=== PATIENT | male | born 1960 | race Caucasian/White ===

== ENCOUNTER → 2022-04-04 11:45 | Outpatient (CLI) | payer BC, SELFPAY ==
[2022-04-04 18:20] LABS: Basophils % 0.7 % (0.1-2.0); Eosinophils # 0.1 K/mm3 (0.0-0.4); Eosinophils % 2.1 % (0.1-12.0); Hematocrit 49.8 % (42.0-52.0); Hemoglobin 16.3 g/dL (14.1-18.0); Lymphocytes # 1.4 K/mm3 (0.7-4.5); Mean Corpuscular HGB Conc 32.6 g/dL (31.8-35.4); Mean Corpuscular Hemoglobin 31.9 pg (27.0-31.2); Mean Corpuscular Volume 97.9 fl (80-94); Mean Platelet Volume 10.4 fl (7.4-10.4); Monocytes # 0.4 K/mm3 (0.1-1.0); Monocytes % 7.9 % (1.7-9.3); Neutrophils # 3.6 K/mm3 (1.8-7.8); Neutrophils % 64.4 % (37.0-80.0); Platelet Count 168 K/mm3 (142-424); Red Blood Count 5.09 M/mm3 (4.60-6.20); Red Cell Distribution Width 12.6 % (11.5-17.5); White Blood Count 5.6 K/mm3 (4.8-10.8)
[2022-04-04 18:50] LABS: Alanine Aminotransferase 32 U/L (12-78); Albumin Level 4.5 g/dl (3.5-5.0); Albumin/Globulin Ratio 1.7 (1.1-1.8); Alkaline Phosphatase 69 U/L (38-126); Anion Gap 13.4 mEq/L (5-15); Aspartate Amino Transferase 36 U/L (17-59); Bilirubin,Total 0.7 mg/dl (0.2-1.3); Blood Urea Nitrogen 19 mg/dl (9-20); Calcium 9.8 mg/dl (8.4-10.2); Carbon Dioxide 30 mmol/L (22.0-30.0); Chloride 101 mmol/L (98-107); Chol/HDL Ratio 3.8 (1-3.5); Cholesterol 190 mg/dl (140-200); Estimated Glomerular Filt Rate 76 ml/min (>60); GFR (African American) 92 ML/MIN (>60); Globulin 2.7 g/dL (1.3-3.2); Glucose 95 mg/dl (74-100); HDL Cholesterol 50 mg/dl (40-60); Potassium 4.4 mmoL/L (3.5-5.1); Sodium 140 mmol/L (136-145); Total Protein,Serum 7.2 g/dl (6.3-8.2); Triglycerides 118 mg/dl (30-150); VLDL Cholesterol 24 mg/dL (0-40)
[2022-04-04 19:02] LABS: Direct LDL Cholesterol 108.77 mg/dL (100-129)
[2022-04-04 19:06] LABS: 25-OH Vitamin D, Total 40.1 ng/mL (30-100)
[2022-04-04 19:22] LABS: Thyroid Stimulating Hormone 1.42 uIU/mL (0.465-4.68)
[2022-04-04 19:41] LABS: Vitamin B12 602 pg/mL (239-931)
[2022-04-04 19:44] LABS: Hemoglobin A1C 5.6 % (4.0-6.0); Microalbumin < 6.000 mg/L (0-16.7)
== END ==
PROVIDERS: PCP Nurse Practitioner; Visit Provider Nurse Practitioner
DX: I10 Essential (primary) hypertension (principal); E78.5 Hyperlipidemia, unspecified; K21.9 Gastro-esophageal reflux disease without esophagitis; J30.9 Allergic rhinitis, unspecified; E66.9 Obesity, unspecified; Z68.31 Body mass index [BMI] 31.0-31.9, adult; N40.0 Benign prostatic hyperplasia without lower urinary tract symptoms; Z12.5 Encounter for screening for malignant neoplasm of prostate
CPT/HCPCS: 80053; 80061; 82043; 82306; 82607; 83036; 84443; 85025; G0103

== ENCOUNTER → 2023-05-15 23:27 | Outpatient (CLI) | payer BC, SELFPAY ==
[2023-05-15 18:51] LABS: Basophils % 0.5 % (0.1-2.0); Eosinophils # 0.1 K/mm3 (0.0-0.4); Eosinophils % 1.8 % (0.1-12.0); Hematocrit 50.8 % (42.0-52.0); Hemoglobin 17.5 g/dL (14.1-18.0); Lymphocytes # 1.4 K/mm3 (0.7-4.5); Lymphocytes % 27.1 % (10-50); Mean Corpuscular HGB Conc 34.5 g/dL (31.8-35.4); Mean Corpuscular Hemoglobin 32.9 pg (27.0-31.2); Mean Corpuscular Volume 95.4 fl (80-94); Mean Platelet Volume 10.5 fl (7.4-10.4); Monocytes # 0.3 K/mm3 (0.1-1.0); Neutrophils # 3.3 K/mm3 (1.8-7.8); Neutrophils % 64.5 % (37.0-80.0); Platelet Count 138 K/mm3 (142-424); Red Blood Count 5.32 M/mm3 (4.60-6.20); Red Cell Distribution Width 12.6 % (11.5-17.5); White Blood Count 5.1 K/mm3 (4.8-10.8)
[2023-05-15 19:05] LABS: Alanine Aminotransferase 39 U/L (12-78); Albumin Level 4.6 g/dl (3.5-5.0); Albumin/Globulin Ratio 1.5 (1.1-1.8); Alkaline Phosphatase 51 U/L (38-126); Aspartate Amino Transferase 36 U/L (17-59); Bilirubin,Total 0.9 mg/dl (0.2-1.3); Blood Urea Nitrogen 19 mg/dl (9-20); Calcium 9.1 mg/dl (8.4-10.2); Carbon Dioxide 30 mmol/L (22.0-30.0); Chloride 103 mmol/L (98-107); Cholesterol 185 mg/dl (140-200); Estimated Glomerular Filt Rate 76 ml/min (>60); GFR (African American) 92 ML/MIN (>60); Glucose 98 mg/dl (74-100); Total Protein,Serum 7.6 g/dl (6.3-8.2); Triglycerides 146 mg/dl (30-150); VLDL Cholesterol 29 mg/dL (0-40)
[2023-05-15 19:07] LABS: Anion Gap 6.4 mEq/L (5-15); Chol/HDL Ratio 3.6 (1-3.5); HDL Cholesterol 52 mg/dl (40-60); Potassium 4.4 mmoL/L (3.5-5.1); Sodium 135 mmol/L (136-145)
[2023-05-15 19:16] LABS: Direct LDL Cholesterol 104.79 mg/dL (100-129)
[2023-05-15 19:36] LABS: Prostate Specific Ag Screen 0.9 ng/ml (0.0-4.0); Thyroid Stimulating Hormone 1.77 uIU/mL (0.465-4.68)
[2023-05-15 19:55] LABS: Vitamin B12 481 pg/mL (239-931)
[2023-05-15 19:58] LABS: Microalbumin < 6.000 mg/L (0-16.7)
[2023-05-15 20:20] LABS: Creatinine,Urine Random 62 mg/dL (Not Estab.)
[2023-05-15 20:40] LABS: Hemoglobin A1C 5.6 % (4.0-6.0)
== END ==
LOC: LAB.DROPOF 23:27
PROVIDERS: PCP Nurse Practitioner; Visit Provider Nurse Practitioner
DX: E78.5 Hyperlipidemia, unspecified (principal); I10 Essential (primary) hypertension; J30.9 Allergic rhinitis, unspecified; K21.9 Gastro-esophageal reflux disease without esophagitis; N40.0 Benign prostatic hyperplasia without lower urinary tract symptoms; Z12.5 Encounter for screening for malignant neoplasm of prostate; Z79.899 Other long term (current) drug therapy
CPT/HCPCS: 80053; 80061; 82043; 82570; 82607; 83036; 84443; 85025; G0103

== ENCOUNTER 2024-04-02 10:49 | Outpatient (CLI) | payer BC, SELFPAY ==
[2024-04-02 18:12] LABS: Albumin Level 4.5 g/dl (3.5-5.0)
[2024-04-02 18:13] LABS: Chloride 105 mmol/L (98-107); Sodium 137 mmol/L (136-145)
[2024-04-02 18:15] LABS: Alanine Aminotransferase 32 U/L (12-78); Albumin/Globulin Ratio 1.5 (1.1-1.8); Alkaline Phosphatase 50 U/L (38-126); Aspartate Amino Transferase 30 U/L (17-59); Blood Urea Nitrogen 18 mg/dl (9-20); Carbon Dioxide 25 mmol/L (22.0-30.0); Estimated Glomerular Filt Rate 86 ml/min (>60); GFR (African American) 103 ML/MIN (>60); Total Protein,Serum 7.5 g/dl (6.3-8.2)
[2024-04-02 18:16] LABS: Calcium 9.3 mg/dl (8.4-10.2); Chol/HDL Ratio 4.1 (1-3.5); Cholesterol 183 mg/dl (140-200); Glucose 111 mg/dl (74-100); HDL Cholesterol 45 mg/dl (40-60); Triglycerides 130 mg/dl (30-150); VLDL Cholesterol 26 mg/dL (0-40)
[2024-04-02 18:27] LABS: Direct LDL Cholesterol 101.84 mg/dL (100-129)
[2024-04-02 18:30] LABS: Hemoglobin A1C 5.5 % (4.0-6.0)
[2024-04-02 18:41] LABS: Basophils % 0.8 % (0.1-2.0); Eosinophils # 0.1 K/mm3 (0.0-0.4); Eosinophils % 2.8 % (0.1-12.0); Hemoglobin 16.5 g/dL (14.1-18.0); Lymphocytes # 1.2 K/mm3 (0.7-4.5); Mean Corpuscular HGB Conc 34.3 g/dL (31.8-35.4); Mean Corpuscular Hemoglobin 32.1 pg (27.0-31.2); Mean Corpuscular Volume 93.5 fl (80-94); Mean Platelet Volume 10.2 fl (7.4-10.4); Monocytes # 0.3 K/mm3 (0.1-1.0); Monocytes % 6.4 % (1.7-9.3); Neutrophils # 2.9 K/mm3 (1.8-7.8); Platelet Count 152 K/mm3 (142-424); Red Blood Count 5.14 M/mm3 (4.60-6.20); Red Cell Distribution Width 12.5 % (11.5-17.5); White Blood Count 4.6 K/mm3 (4.8-10.8)
[2024-04-02 18:43] LABS: T4 (Thyroxine) 7.7 ug/dl (5.53-11.0)
[2024-04-02 18:56] LABS: Thyroid Stimulating Hormone 1.37 uIU/mL (0.465-4.68)
[2024-04-02 19:42] LABS: 25-OH Vitamin D, Total 47.5 ng/mL (30-100)
== END 2024-04-02 23:59 | disposition home or self-care (01) ==
LOC: LAB.DROPOF 04-05 10:49
PROVIDERS: PCP Nurse Practitioner Family; Visit Provider Nurse Practitioner Family
DX: E78.5 Hyperlipidemia, unspecified (principal); N40.0 Benign prostatic hyperplasia without lower urinary tract symptoms; I10 Essential (primary) hypertension
CPT/HCPCS: 80050; 80053; 80061; 82306; 83036; 84436; 84443; 85025

== ENCOUNTER 2024-12-21 10:33 | Outpatient (CLI) | payer BC, SELFPAY ==
--- OUTSIDE RECORDS SUMMARY | 2024-10-26 11:26 | XMS_ITS | Encounter Summary ---
Author [place] [address] Care Team Providers Care Hyperbaric Nurse Name Role Phone Pramod Dawson MD Primary Care Provider [phone] Reason for Visit * Reason Comments Chest Pain Pt states int chest tightness for past couple of weeks cpta none Encounter Details Date Type Department Care Team (Late st Contact Info) Description 10/26/2024 11:26 AM EDT - 10/26/2024 3:09 PM EDT [facility] [place] [address] Don Molina MD [address] [place] [address] Chest pain, unspecified type (Primary Dx) Discharge Disposition: Home or Self Care Social History Tobacco Use Types Packs/Day Years Used Date Smoking Tobacco: Former Smokeless Tobacco: Never Alcohol Use Standard Drinks/Week Comments No 0 (1 standard drink = 0.6 oz pur e alcohol) Sex and Gender Information Value Date Recorded Sex Assigned at Not on file Legal Sex Male 5:16 PM EDT Gender Identity Not on file Sexual Orientation Not on file documented as of this encounter Last Filed Vital Signs Vital Sign Reading Time Taken Comments Blood Pressure 135/104 10/26/2024 2:00 PM EDT Pulse 58 10/26/2024 2:30 PM EDT Temperature 36.7 C (98 F) 10/26/2024 11:06 AM EDT Respiratory Rate 18 10/26/2024 2:30 PM EDT Oxygen Saturation 96% 10/26/2024 2:30 PM EDT Inhaled Oxygen Concentration - - Weight 100.2 kg (221 lb) 10/26/2024 11:06 AM EDT Height 182.9 cm (6') 10/26/2024 11:06 AM EDT Body Mass Index 29.97 10/26/2024 11:06 AM EDT documented in this encounter Functional Status * Suicide Severity Rating Answer Date of Assessment Author No Risk 10/26/2024 11:35 AM EDT Dang Queen, ASHWIN * [place] Suicide Severity Rating Scale (Q shift for moderate and high) Question Answer Date of Assessment Author 1. In the past month, have y ou wished you were or wished you could go to sleep and not wake up? 0 10/26/2024 11:35 AM EDT Rose Queen, RN 2. In the past month, have y ou actually had any thoughts of killing yourself? (If no, skip to question 6) 0 10/26/2024 11:35 AM ED T Dang Queen, RN 6. Have you ever done anythi ng, started to do anything, or prepared to do anything to end your life? 0 10/26/2024 11:35 AM EDT Dang Bergman RN documented as of this encounter Discharge Instructions * Discharge Instructions* Vance Lopez APRN - 10/26/2024 2:25 PM EDT Follow-up as discussed with referrals provided. Return to ER with new or worsening concerns as discussed. * Attachments The following attachments cannot be sent through Care Everywhere. * Chest Pain, Adult ED (Malawian) documented in this encounter Medications at Time of Discharge finasteride (PROPECIA) 1 mg Oral Tablet Take 1 mg by mouth daily. LISINOPRIL-HYDROCH LOROTHIAZIDE ORAL Take by mouth. omeprazole (PRILOSEC) 40 mg Oral Capsule, Delayed Release(E.C.) Take 1 Cap by mouth daily. 30 Cap 11 11/13/2016 rosuvastatin (CRESTOR) 10 mg Oral Tablet Take 10 mg by mouth daily. documented as of this encounter Discharge Disposition Disposition Code Departure Means Destination Comment s Home or Self Detention documented in this encounter ED Notes * Vance Lopez, ROLLED O[employer] MILL OPERATOR - 10/26/2024 10:57 AM EDT CHIEF COMPLAINT Chief Complaint Patient presents with Chest Pain Pt states int chest tightness for past couple of weeks cpta none I saw this patient for my attending physician Don Raya MD who was available for direct consultation during assessment, workup and disposition planning. ED COURSE & MEDICAL DECISION MAKING Anastasiya Diaz is a 64 y.o. male with a PMHx listed below, notable for Feliz's esophagus presenting with chest pain. # Chest pain (Subacute) - Briefly, 64-year-old otherwise healthy male presenting with midsternal chest pain that worsened postprandially yesterday but has been ongoing for several weeks thought to be stress related but not necessarily exertional nor pleuritic. On exam he is uncomfortable in no acute distress. He is hemodynamically stable. ACS certainly considered although EKG and troponin negative x 2 reassuring. BNP isotherwise within normal limits. Remainder of labs unremarkable. Biliary pathology considered although abdominal exam is benign, no leukocytosis and no hepatobiliary derangement. Chest x-ray is without consolidative change suggestive of pneumonia or other acute intrathoracic finding. Given paucity of respiratory symptoms and lack of overtly concerning historical physical exam findings doubt VTE ormore specifically PE as such further diagnostic workup deferred today. Does have a history of Feliz's esophagitis and reports symptoms that do seem somewhat consistent with this. He has had modest symptom improvement with GI cocktail. He is felt to be low risk based on heart score of 3 stable foroutpatient follow-up with cardiology, recommend follow-up with GI as well. Strict return precautions discussed for escalating symptoms. After shared decision making patient feels comfortable with disposition plan for discharge and outpatient follow-up as aforementioned. HEART Score Row Name 10/26/24 1350 History Moderately suspicious ECG Normal Age 45-64 Risk Factors 1-2 risk factors Troponin Less than or equal to normal limit HEART Score 3 - History obtained by patient as well as chart review. - Pertinent Labs & Imaging studies reviewed. (See chart for ordered tests and details). - Independent Imaging Interpretation: None - Consultants: None - Social Determinants of Health: Noncontributory - Care of patient discussed with nursing team and nursing documentation reviewed. ED COURSE Medications Administered Medications sodium chloride 0.9% syringe 5-10 mL (has no administration in time range) sodium chloride 0.9% IV line flush 50 mL (has no administration in time range) aluminum & magnesium hydroxide-simethicone 200-200-20 mg/5 mL suspension 30 mL (30 mL Oral Given 10/26/24 1221) lidocaine (XYLOCAINE) 2 % viscous solution 10 mL (10 mL Mouth/Throat Given 10/26/24 1221) Prescriptions Written ED Current Prescriptions None Future Appointments Future Appointments Date Time Provider Department Center 12/20/2024 9:20 AM Dewey Streeter MD [facility] FINAL IMPRESSION 1. Chest pain, unspecified type HPI Anastasiya Diaz is a 64 y.o. male presenting with chest pain. Patient reports a at least 2-week long history of midsternal chest pain that he describes as dull and achy, occasionally burning. It doesnot radiate into his back or shoulder but he does report occasional radiation into both sides of his neck. He denies any rating abdominal pain. Reports occasional nausea noted yesterday denies vomitin g. Reports occasional shortness of breath. Denies any exertional component or pleuritic nature to his pain and states he was able to bale hay yesterday without significant difficulty or pain noted.He states his pain is mostly noted at rest or under stress. He denies any lightheadedness or dizziness but does note feeling generally fatigued and weak. Denies fevers or chills. He reports a more chronic cough that is nonproductive. Denies any known recent sick contacts. Denies leg swelling or weight gain. Does note yesterday after eating hotdogs and hamburgers at a cookout his pain did worsen somewhat and occasionally feels burning in nature. REVIEW OF SYSTEMS A complete review of systems is negative except as noted in the HPI. PAST MEDICAL HISTORY Past Medical History: Diagnosis Date Heartburn Hypertension Prostate disorder Ulcer Urinary tract infection FAMILY HISTORY Family History Problem Relation Age of Onset Cancer Mother Colon Cancer Mother Esophageal Cancer Other SOCIAL HISTORY Social History Socioeconomic History Marital status: Spouse name: None Number of children: None Years of education: None Highest education level: None Tobacco Use Smoking status: Former Smokeless tobacco: Never Vaping Use Vaping status: Never Used Substance and Sexual Activity Alcohol use: No Drug use: No Social Drivers of Health Received from [facility] Intimate Partner Violence SURGICAL HISTORY Past Surgical History: Procedure Laterality Date COLONOSCOPY N/A 07/19/2013 COLONOSCOPY; Surgeon: Jordan Beck MD; Location: ED ENDOSCOPY; Service: Endoscopy COLONOSCOPY N/A 11/13/2016 Surgeon: Jordan Beck MD; Location: [facility] ENDOSCOPY; Service: Endoscopy CYSTOSCOPY In office with UPPER GASTROINTESTINAL ENDOSCOPY N/A 11/13/2016 ESOPHAGOGASTRODUODENOSCOPY with biopsy COLONOSCOPY with hot snare polypectomy; Surgeon: Jordan Beck MD; Location: [facility] ENDOSCOPY; Service: Endoscopy CURRENT MEDICATIONS No current facility-administered medications on file prior to encounter. Current Outpatient Medications on File Prior to Encounter Medication Sig Dispense Refill finasteride (PROPECIA) 1 mg Oral Tablet Take 1 mg by mouth daily. LISINOPRIL-HYDROCHLOROTHIAZIDE ORAL Take by mouth. omeprazole (PRILOSEC) 40 mg Oral Capsule, Delayed Release(E.C.) Take 1 Cap by mouth daily. 30 Cap 11 rosuvastatin (CRESTOR) 10 mg Oral Tablet Take 10 mg by mouth daily. tamsulosin (FLOMAX) 0.4 mg Oral Capsule Take 2 Capsules by mouth daily. 180 Capsule 3 ALLERGIES Allergies Allergen Reactions Penicillins Hives PHYSICAL EXAM VITAL SIGNS: ED Triage Vitals Temp 10/26/24 1106 98 ??F (36.7 ??C) Pulse 10/26/24 1058 68 Resp 10/26/24 1058 18 BP 10/26/24 1106 (!) 164/98 SpO2 10/26/24 1058 98 % Height 10/26/24 1106 6' (1.829 m) Weight 10/26/24 1106 221 lb (100.2 kg) Constitutional: Appears comfortable. Nontoxic. No acute distress. HENT: Atraumatic. Normocephalic. Eyes: Conjunctiva normal. EOMI Neck: ROM normal, supple. Cardiovascular: Regular rate and regular rhythm. Extremities appear warm and well perfused. Thorax & Lungs: Respiratory effort normal. Lungs CTAB Abdomen: Nondistended. Nontender. Musculoskeletal: No deformity or swelling. Moves all 4 extremities spontaneously with apparent equal strength. Skin: Warm and dry. Neurologic: Awake and alert. No focal deficit. LABS/RADIOLOGY Reviewed (See Orders) Results for orders placed or performed during the hospital encounter of 10/26/24 XR CHEST AP PORTABLE Narrative XR CHEST AP PORTABLE, 10/26/2024 12:31 PM CLINICAL HISTORY: -Midsternal chest pain/cough COMPARISON: 12/10/2020 PROCEDURE COMMENTS: AP portable technique. FINDINGS: Support devices: No visible support devices. Heart and mediastinal contours within normal limits for technique. No active failure, pneumonia, or visible effusion. No visible pneumothorax. Impression No acute finding. - Note: Radiology results need to be interpreted within a comprehensive clinical context. If you have questions about the radiology report, please contact the office of the ordering clinician. CBC WITH DIFF Result Value Ref Range WBC 4.8 3.7 - 10.3 x10(3)/mcL RBC 5.08 4.60 - 6.10 x10(6)/mcL Hgb 16.0 13.7 - 17.5 g/dL Hct 46.5 40.0 - 51.0 % MCV 91.5 80.0 - 100.0 fL MCH 31.5 26.0 - 34.0 pg MCHC 34.4 30.7 - 35.5 g/dL RDW 11.8 <=14.9 % Platelet 151 (L) 155 - 369 x10(3)/mcL MPV 11.0 8.8 - 12.5 fL Neut Percent 59.0 % Imm Gran% 0.0 % Lymph Percent 28.8 % Page Percent 10.5 % Eos Percent 1.3 % Baso Percent 0.4 % Neut # 2.8 1.6 - 6.1 x10(3)/mcL IMMGRAN# 0.0 0.0 - 0.1 x10(3)/mcL Lymph # 1.4 1.2 - 3.9 x10(3)/mcL Page # 0.5 0.3 - 0.9 x10(3)/mcL Eos# 0.1 0.0 - 0.5 x10(3)/mcL Baso # 0.0 0.0 - 0.1 x10(3)/mcL COMPREHENSIVE METABOLIC PANEL Result Value Ref Range Sodium 137 136 - 145 mmol/L Potassium 4.1 3.5 - 5.0 mmol/L Chloride 102 98 - 107 mmol/L Total CO2 25 22 - 29 mmol/L Anion Gap 10 7 - 16 mmol/L Calcium 9.4 8.8 - 10.4 mg/dL Glucose Lvl 104 (H) 70 - 99 mg/dL BUN 18 8 - 23 mg/dL Creatinine 1.05 0.67 - 1.30 mg/dL Albumin 4.6 3.2 - 4.6 gm/dL Total Protein 7.5 6.4 - 8.3 gm/dL Bili Total 0.7 0.2 - 1.4 mg/dL ALT 19 <=41 U/L AST 19 <=40 U/L Alk Phos 56 40 - 129 U/L eGFR (CKD-EPIcr 2020) 80 >=60 mL/min/1.73 m2 LIPASE LEVEL Result Value Ref Range Lipase Lvl 21 13 - 60 U/L TROPONIN-T HIGH SENSITIVITY BASELINE W/ REFLEX Result Value Ref Range ws-zObrszmsx-R 7 <22 ng/L Narrative Ingestion of jenni doses of biotin (>5 mg/day) taken within 8 hours of drawing blood sample can interfere with this immunoassay test. NT PROBNP Result Value Ref Range NT Pro-BNP 49 <=229 pg/mL Narrative An NT pro-BNP level less than 300 pg/mL in any patient, regardless of age, effectively rules out acute CHF with a 99% negative predictive value. Ingestion of jenni doses of biotin (>5 mg/day) taken within 8 hours of drawing blood sample can interfere with this immunoassay test. TROPONIN-T HIGH SENSITIVITY 2HR Result Value Ref Range ua-qCozxmunn-R 2HR 6 <22 ng/L hs-cTnT 2Hr Delta from Baseline -1 <4 ng/L Narrative Ingestion of jenni doses of biotin (>5 mg/day) taken within 8 hours of drawing blood sample can interfere with this immunoassay test. EK EKG [address] [facility] Test Date: 2024-10-26 Pat Name: [facility] Department: DEPID Room: Gender: Male Early Childhood Worker: Marvin : 1960 Requested By: [facility] Order Number: [id number] Reading MD: Cindi Dickson DO Measurements Intervals Stanton Rate: 64 P: 22 ID: 160 QRS: -3 QRSD: 91 T: 2 QT: 379 QTc: 391 Interpretive Statements SINUS RHYTHM MODERATE VOLTAGE CRITERIA FOR LVH, CONSIDER NORMAL VARIANT Electronically Signed On 10-26-2024 14:38:38 EDT by Cindi Dickson DO XR CHEST AP PORTABLE Final Result No acute finding. - Note: Radiology results need to be interpreted within a comprehensive clinical context. If you have questions about the radiology report, please contact the office of the ordering clinician. EK EKG 12 LEAD ED Interpretation I have interpreted the EKG for this encounter. Rhythm sinus rhythm at a rate of 64 bpm. The axis isnormal. T waves flattened in aVF and mildly inverted in 3. No ST elevation. No STEMI. Final Result [facility] Test Date: 2024-10-26 Pat Name: [facility]AS[facility] Department: DEPID Room: Gender: Male Early Childhood Worker: Marvin : 1960 Requested By: [facility] Order Number: [id number] Reading MD: Cindi Dickson DO Measurements Intervals Stanton Rate: 64 P: 22 ID: 160 QRS: -3 QRSD: 91 T: 2 QT: 379 QTc: 391 Interpretive Statements SINUS RHYTHM MODERATE VOLTAGE CRITERIA FOR LVH, CONSIDER NORMAL VARIANT Electronically Signed On 10-26-2024 14:38:38 EDT by Cindi Dickson DO Abnormal Labs Reviewed CBC WITH DIFF - Abnormal; Notable for the following components: Result Value Platelet 151 (*) All other components within normal limits COMPREHENSIVE METABOLIC PANEL - Abnormal; Notable for the following components: Glucose Lvl 104 (*) All other components within normal limits EKG EKG sinus rhythm. Ventricular rate 64. Normal axis. No acute ST segment changes. PROCEDURES/ULTRASOUND DISPOSITION Risks, benefits, and alternatives were discussed. At this time the patient has been deemed safe fordischarge. My customary discharge instructions including strict return precautions for worsening ornew symptoms have been communicated. CRITICAL CARE Condition at Discharge/Transfer from Department/Shift Turnover: Improved In cases where narcotics are prescribed, ANA report was obtained, reviewed, and made part of record. After examining available information, and risks of prescribing or dispensing controlled substances was explained to the patient (including non-treatment or other treatment), it is considered medically appropriate to administer narcotics as prescribed. This note was dictated using voice-recognition software, which occasionally construes inadvertent typographic errors. Vance Lopez APRN 10/26/24 1509 Cosigned by Don Molina MD at 10/27/2024 9:08 AM EDT Associated attestation - Don Molina MD - 10/27/2024 9:08 AM EDT Attending Resaw Tailer Note: I have participated in the care of this patient and have reviewed the pertinent clinical information including physical exam findings, labs, and radiographic studies that were gathered by the STEPHANIE. I have reviewed and/or discussed the plan of care I have reviewed workup findings in real-time during the patient's visit. EK EKG 12 LEAD ED Interpretation by Don Molina MD (10/26 743) I have interpreted the EKG for this encounter. Rhythm sinus rhythm at a rate of 64 bpm. The axis isnormal. T waves flattened in aVF and mildly inverted in 3. No ST elevation. No STEMI. Don Molina MD This chart was completed using voice recognition technology and may contain unintended errors documented in this encounter Plan of Treatment Upcoming Encounters Date Type Department Care Team (Late st Contact Info) Description 05/05/2025 1:45 PM EST Office Visit [facility] [address] [address] Cindi Dickson DO [address] [place] [phone] documented as of this encounter Procedures Procedure Name Priority Date/Time Associated Diagnosis Comments SCANNED EKG 10/27/2024 12:21 PM EDT TROPONIN-T HIGH SENSITIVITY 2HR Timed 10/26/2024 2:15 PM EDT XR CHEST AP PORTABLE STAT 10/26/2024 12:31 PM EDT TROPONIN-T HIGH SENSITIVITY BASELINE W/ REFLEX STAT 10/26/2024 12:21 PM EDT CBC WITH DIFF STAT 10/26/2024 12:21 PM EDT NT PROBNP STAT 10/26/2024 12:21 PM EDT LIPASE LEVEL STAT 10/26/2024 12:21 PM EDT COMPREHENSIVE METABOLIC PANEL STAT 10/26/2024 12:21 PM EDT SALINE LOCK IV STAT 10/26/2024 11:51 AM EDT EK EKG 12 LEAD STAT 10/26/2024 10:59 AM EDT documented in this encounter Results * SCANNED EKG (10/27/2024 12:21 PM EDT) Anatomical Region Laterality Modality Other 10/27/2024 12:2 1 PM EDT us Unknown Provider IMG ECG ORDERABLES Final Result * TROPONIN-T HIGH SENSITIVITY 2HR (10/26/2024 2:15 PM EDT) fs-gZasbrvac-E 2HR 6 <22 ng/L 10/26/2024 2:34 PM EDT [facility] hs-cTnT 2Hr Delta from Baseline -1 <4 ng/L 10/26/2024 2:34 PM EDT [facility] Blood VENOUS BLOOD / Unknown Venipuncture / Unknown 10/26/2024 2:15 PM EDT 10/26/2024 2:16 PM EDT Narrative [facility] - 10/26/2024 2:34 PM EDT Ingestion of jenni doses of biotin (>5 mg/day) taken within 8 hours of drawing blood sample can interfere with this immunoassay test. Vance Lopez APRN CHEMISTRY ORDERABLES Fin al Result [facility] [address] [place] [address] * XR CHEST AP PORTABLE (10/26/2024 12:31 PM EDT) Anatomical Region Laterality Modality Chest Radiographic Caitlin ging 10/26/2024 12:3 1 PM EDT Impressions 10/26/2024 12:39 PM EDT No acute finding. - Note: Radiology results need to be interpreted within a comprehensive clinical context. If you have questions about the radiology report, please contact the office of the ordering clinician. Narrative 10/26/2024 12:39 PM EDT XR CHEST AP PORTABLE, 10/26/2024 12:31 PM CLINICAL HISTORY: -Midsternal chest pain/cough COMPARISON: 12/10/2020 PROCEDURE COMMENTS: AP portable technique. FINDINGS: Support devices: No visible support devices. Heart and mediastinal contours within normal limits for technique. No active failure, pneumonia, or visible effusion. No visible pneumothorax. Procedure Note Mukesh Melgar III, MD - 10/26/2024 XR CHEST AP PORTABLE, 10/26/2024 12:31 PM CLINICAL HISTORY: -Midsternal chest pain/cough COMPARISON: 12/10/2020 PROCEDURE COMMENTS: AP portable technique. FINDINGS: Support devices: No visible support devices. Heart and mediastinal contours within normal limits for technique. Noactive failure, pneumonia, or visible effusion. No visible pneumothorax. IMPRESSION: No acute finding. - Note: Radiology results need to be interpreted within a comprehensiveclinical context. If you have questions about the radiology report, please contactthe office of the ordering clinician. Vance Lopez APRN IMG DIAGNOSTIC IMAGING O RDERABLES Final Result * NT PROBNP (10/26/2024 12:21 PM EDT) NT Pro-BNP 49 <=229 pg/mL 10/26/2024 12:51 PM EDT [facility] Blood VENOUS BLOOD / Unknown Venipuncture / Unknown 10/26/2024 12:21 PM EDT 10/26/2024 12:28 PM EDT Narrative [facility] - 10/26/2024 12:51 PM EDT An NT pro-BNP level less than 300 pg/mL in any patient, regardless of age, effectively rules out acute CHF with a 99% negative predictive value. Ingestion of jenni doses of biotin (>5 mg/day) taken within 8 hours of drawing blood sample can interfere with this immunoassay test. Vance Lopez APRN CHEMISTRY ORDERABLES Fin al Result Performing Organization Address [facility] Co de Phone Number [address] [phone] * TROPONIN-T HIGH SENSITIVITY BASELINE W/ REFLEX (10/26/2024 12:21 PM EDT) oy-nUaeyprea-I 7 <22 ng/L 10/26/2024 12:51 PM EDT [facility] Blood VENOUS BLOOD / Unknown Venipuncture / Unknown 10/26/2024 12:21 PM EDT 10/26/2024 12:28 PM EDT Narrative [facility] - 10/26/2024 12:51 PM EDT Ingestion of jenni doses of biotin (>5 mg/day) taken within 8 hours of drawing blood sample can interfere with this immunoassay test. Vance Lopez APRN CHEMISTRY ORDERABLES Fin al Result Performing Organization Address [facility]/ZIP Co de Phone Number [address] [phone] * LIPASE LEVEL (10/26/2024 12:21 PM EDT) Lipase Lvl 21 13 - 60 U/L 10/26/2024 12:48 PM EDT [facility] Blood VENOUS BLOOD / Unknown Venipuncture / Unknown 10/26/2024 12:21 PM EDT 10/26/2024 12:28 PM EDT us Vance Diya Malikaries ROLLED O[employer] MILL OPERATOR CHEMISTRY ORDERABLES Fin al Result [facility] [address] [place] [address] * (ABNORMAL) COMPREHENSIVE METABOLIC PANEL (10/26/2024 12:21 PM EDT) Sodium 137 136 - 145 mmol/L 10/26/2024 12:48 PM EDT [facility] Potassium 4.1 3.5 - 5.0 mmol/L 10/26/2024 12:48 PM EDT [facility] Chloride 102 98 - 107 mmol/L 10/26/2024 12:48 PM EDT [facility] Total CO2 25 22 - 29 mmol/L 10/26/2024 12:48 PM EDT [facility] Anion Gap 10 7 - 16 mmol/L 10/26/2024 12:48 PM EDT [facility] Calcium 9.4 8.8 - 10.4 mg/dL 10/26/2024 12:48 PM EDT [facility] Glucose Lvl 104(H) 70 - 99 mg/dL 10/26/2024 12:48 PM EDT [facility] BUN 18 8 - 23 mg/dL 10/26/2024 12:48 PM EDT [facility] Creatinine 1.05 0.67 - 1.30 mg/dL 10/26/2024 12:48 PM EDT [facility] Albumin 4.6 3.2 - 4.6 gm/dL 10/26/2024 12:48 PM EDT [facility] Total Protein 7.5 6.4 - 8.3 gm/dL 10/26/2024 12:48 PM EDT [facility] Bili Total 0.7 0.2 - 1.4 mg/dL 10/26/2024 12:48 PM EDT [facility] ALT 19 <=41 U/L 10/26/2024 12:48 PM EDT [facility] AST 19 <=40 U/L 10/26/2024 12:48 PM EDT [facility] Alk Phos 56 40 - 129 U/L 10/26/2024 12:48 PM EDT [facility] eGFR (CKD-EPIcr 2020) 80 >=60 mL/min/1.7 3 m2 10/26/2024 12:48 PM EDT [facility] Comment:Estimated GFR was ca lculated using the CKD-EPIcr (2020) equation refit without race. The equation is recommended by the [employer] - [place] [employer]ph[employer] Task Force. Blood VENOUS BLOOD / Unknown Venipuncture / Unknown 10/26/2024 12:21 PM EDT 10/26/2024 12:28 PM EDT us Vance Lopez RO[employer]ED [employer] M[employer] OPERATOR CHEMISTRY ORDERABLES Fin al Result [place] [id number] * (ABNORMAL) CBC WITH DIFF (10/26/2024 12:21 PM EDT) WBC 4.8 3.7 - 10.3 x10(3)/mcL 10/26/2024 12:33 PM EDT [facility] RBC 5.08 4.60 - 6.10 x10(6)/mcL 10/26/2024 12:33 PM EDT [facility] Hgb 16.0 13.7 - 17.5 g/dL 10/26/2024 12:33 PM EDT [facility] Hct 46.5 40.0 - 51.0 % 10/26/2024 12:33 PM EDT [facility] [facility] MCV 91.5 80.0 - 100.0 fL 10/26/2024 12:33 PM EDT [facility] MCH 31.5 26.0 - 34.0 pg 10/26/2024 12:33 PM EDT [facility] MCHC 34.4 30.7 - 35.5 g/dL 10/26/2024 12:33 PM EDT [facility] RDW 11.8 <=14.9 % 10/26/2024 12:33 PM EDT [facility] Platelet 151(L) 155 - 369 x10(3)/[facility] 10/26/2024 12:33 PM EDT [facility] MPV 11.0 8.8 - 12.5 fL 10/26/2024 12:33 PM EDT [facility] Neut Percent 59.0 % 10/26/2024 12:33 PM EDT [facility] Comment:Neutrophils equals s egs plus bands Imm Gran% 0.0 % 10/26/2024 12:33 PM EDT [facility] Comment:Automated count of m etamyelocytes, myelocytes and promyelocytes. Lymph Percent 28.8 % 10/26/2024 12:33 PM EDT [facility] Page Percent 10.5 % 10/26/2024 12:33 PM EDT [facility] Eos Percent 1.3 % 10/26/2024 12:33 PM EDT [facility] Baso Percent 0.4 % 10/26/2024 12:33 PM EDT [facility] Neut # 2.8 1.6 - 6.1 x10(3)/[facility] 10/26/2024 12:33 PM EDT [facility] Comment:Neutrophils equals s egs plus bands IMMGRAN# 0.0 0.0 - 0.1 x10(3)/mcL 10/26/2024 12:33 PM EDT [facility] Comment:Automated count of m etamyelocytes, myelocytes and promyelocytes. An absolute IG <0.1 is reported as 0.0. Lymph # 1.4 1.2 - 3.9 x10(3)/mcL 10/26/2024 12:33 PM EDT [facility] Page # 0.5 0.3 - 0.9 x10(3)/[facility] 10/26/2024 12:33 PM EDT [facility] Eos# 0.1 0.0 - 0.5 x10(3)/mcL 10/26/2024 12:33 PM EDT [facility] Baso # 0.0 0.0 - 0.1 x10(3)/mcL 10/26/2024 12:33 PM EDT [facility] Blood VENOUS BLOOD / Unknown Venipuncture / Unknown 10/26/2024 12:21 PM EDT 10/26/2024 12:28 PM EDT us Vance Lopez [employer] HEMATOLOGY ORDERABLES Fi nal Result [facility] [address] [place] [address] * EK EKG 12 LEAD (10/26/2024 10:59 AM EDT) Anatomical Region Laterality Modality Electrocardiogra phy 10/26/2024 11:0 4 AM EDT Impressions 10/26/2024 2:[address] 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1960 Requested By: [facility] Order Number: [id number] Reading MD: Cindi Dickson DO Measurements Intervals [place] Rate: 64 P: 22 ID: 160 QRS: -3 QRSD: 91 T: 2 QT: 379 QTc: 391 Interpretive Statements SINUS RHYTHM MODERATE VOLTAGE CRITERIA FOR LVH, CONSIDER NORMAL VARIANT Electronically Signed On 10-26-2024 14:38:38 EDT by Cindi Dickson DO Narrative Procedure Note Cindi Dickson DO - 10/26/[address] [facility] Test Date: 2024-10-26 Pat Name: ANASTASIYA DIAZ Department: DEPID Room: Gender: Male Early Childhood Worker: Bt : 1960 Requested By: [facility] Order Number: [id number] Reading MD: Cindi Dickson DO Measurements Intervals [place] Rate: 64 P: 22 ID: 160 QRS: -3 QRSD: 91 T: 2 QT: 379 QTc: 391 Interpretive Statements SINUS RHYTHM MODERATE VOLTAGE CRITERIA FOR LVH, CONSIDER NORMAL VARIANT Electronically Signed On 10-26-2024 14:38:38 EDT by Cindi Dickson DO us Don Molina MD IMG ECG ORDERABLES Final Resul t documented in this encounter Visit Diagnoses Diagnosis Chest pain, unspecified type- Primary documented in this encounter Administered Medications Inactive Administered Medications - up to 1 most recent administrations Medication Order MAR Action Action Date Dose Rate Site aluminum & magnesium hydroxide-simethicone 200-200-20 mg/5 mL suspension 30 mL 30 mL, Oral, ONCE, 1 dose, On Fri10/26/24 at 1200, Viscous lidocaine is currently on national back order. Aluminum & magnesium hydroxide-simethicone (Maalox) monotherapy has been shown to be as effective to treat epigastric pain as combination with lidocaine. Please continue with interchange to aluminum & magnesium hydroxide-simethicone (Maalox) monotherapy. Given 10/26/2024 12:21 PM EDT 30 mL lidocaine (XYLOCAINE) 2 % viscous solution 10 mL 10 mL, Mouth/Throat, ONCE, 1 dose, On Fri10/26/24 at 1200 Given 10/26/2024 12:21 PM EDT 10 mL sodium chloride 0.9% IV line flush 50 mL 50 mL, Intravenous, at 999 mL/hr, PRN, Starting on Fri10/26/24 at 1151, Until Fri10/26/24 at 1914, Line Care, Flush with 50 mL after IVPB to insure complete administration of the dose. May use the saline infusion to back flush IVPB tubing as needed., Use this order to document priming and flushing IV line after medication administration. sodium chloride 0.9% syringe 5-10 mL 5-10 mL, Intravenous, PRN, Starting on Fri10/26/24 at 1151, Until Fri10/26/24 at 1914, Line Care, Flush with 5 mL saline pre/post IVP, and 5 mL prior to IVPB or blood product administration. Protocol for PERIPHERAL IV saline lock maintenance, flush with 3-5 mL saline syringe every 8 hours., Flush peripheral lines every 12 hours, central lines every 8 hours, and after IV medication documented in this encounter Active and Recently Administered Medications Times are shown in EDT. Scheduled Medication Order 10/24/2024 10/25/2024 10/26/2024 aluminum & magnesium hydroxide-simethicone 200-200-20 mg/5 mL suspension 30 mL (COMPLETED) 30 mL, Oral, ONCE, 1 dose, On Fri10/26/24 at 1200, Viscous lidocaine is currently on national back order. Aluminum & magnesium hydroxide-simethicone (Maalox) monotherapy has been shown to be as effective to treat epigastric pain as combination with lidocaine. Please continue with interchange to aluminum & magnesium hydroxide-simethicone (Maalox) monotherapy. 1221 (Given - Provid er: Dang Queen RN) lidocaine (XYLOCAINE) 2 % viscous solution 10 mL (COMPLETED) 10 mL, Mouth/Throat, ONCE, 1 dose, On Fri10/26/24 at 1200 1221 (Given - Provid er: Dang Queen RN) PRN Medication Order 10/24/2024 10/25/2024 10/26/2024 sodium chloride 0.9% IV line flush 50 mL 50 mL, Intravenous, at 999 mL/hr, PRN, Starting on Fri10/26/24 at 1151, Until Fri10/26/24 at 1914, Line Care, Flush with 50 mL after IVPB to insure complete administration of the dose. May use the saline infusion to back flush IVPB tubing as needed., Use this order to document priming and flushing IV line after medication administration. sodium chloride 0.9% syringe 5-10 mL 5-10 mL, Intravenous, PRN, Starting on Fri10/26/24 at 1151, Until Fri10/26/24 at 1914, Line Care, Flush with 5 mL saline pre/post IVP, and 5 mL prior to IVPB or blood product administration. Protocol for PERIPHERAL IV saline lock maintenance, flush with 3-5 mL saline syringe every 8 hours., Flush peripheral lines every 12 hours, central lines every 8 hours, and after IV medication documented in this encounter Orders Medications Ordered That Aristides ht Not Have Been Administered Count Last Ordered Date First Ordered Date sodium chloride 0.9% IV line flush 50 mL 1 10/26/2024 sodium chloride 0.9% syringe 5-10 mL 1 10/01 Nursing Count Last Ordered Date First Orde red Date CARDIAC MONITORING 1 10/26/2024 IV Count Last Ordered Date First Orde red Date SALINE LOCK IV 1 10/26/2024 documented in this encounter Care Teams Hyperbaric Nurse Relationship Specialty Start Date End Date Pramod Dawson MD [address] [place] [id number] PCP - General 12/14/10 documented as of this encounter
--- OUTSIDE RECORDS SUMMARY | 2024-11-18 14:15 | XMS_ITS | Encounter Summary ---
Author Organization [place] [address] Care Team Providers Care Foreign Service Officer Name Role Phone Pramod Dawson MD Primary Care Provider [phone] Reason for Referral * MRI/CAT Scan (Routine) - PCP Precert Acquired Specialty Diagnoses / Procedures Referred By Yao olvera Referred To Contact Radiology Diagnoses Chest pain, unspecified type Essential hypertension Dyslipidemia Gastroesophageal reflux disease with esophagitis without hemorrhage Feliz's esophagus without dysplasia Procedures CT ANGIOGRAM CORONARY W CONTRAST Cindi Dickson DO [address] [place] [address] Phone: tel: fax: Referral ID Status Reason Start Date Expiration Date V isits Requested Visits Authorized [id number] PCP Precert Acquired 11/18/2024 11/18/2025 1 1 Reason for Visit * Reason Comments Hospital Follow Up Chest Discomfort Shortness of Breath Hypertension * Consultation (Routine) - Pending Review Specialty Diagnoses / Procedures Referred By Yao olvera Referred To Contact Internal Medicine-Cardiovascular Disease / Cardiology Diagnoses ED f/u Procedures NEW PATIENT Pramod Dawson MD [address] [place] [address] Phone: tel: fax: Cindi Dickson DO [address] [place] [address] Phone: tel: fax: Referral ID Status Reason Start Date Expiration Date V isits Requested Visits Authorized [id number] Pending Review 11/18/2024 11/18/2025 99 99 Encounter Details Date Type Department Care Team (Late st Contact Info) Description 11/18/2024 2:15 PM EDT Office Visit [facility] [address] [address] Cindi Dickson DO [address] [place] [address] Chest pain, unspecified type (Primary Dx); Essential hypertension; Dyslipidemia; Gastroesophageal reflux disease with esophagitis without hemorrhage; Feliz's esophagus without dysplasia Social History Tobacco Use Types Packs/Day Years Used Date Smoking Tobacco: Former Smokeless Tobacco: Never Tobacco Cessation:Counseling Given: Not Answered Alcohol Use Standard Drinks/Week Comments No 0 (1 standard drink = 0.6 oz pur e alcohol) Sex and Gender Information Value Date Recorded Sex Assigned at Not on file Legal Sex Male 5:16 PM EDT Gender Identity Not on file Sexual Orientation Not on file documented as of this encounter Last Filed Vital Signs Vital Sign Reading Time Taken Comments Blood Pressure 122/100 11/18/2024 2:04 PM EDT Pulse 63 11/18/2024 2:04 PM EDT Temperature - - Respiratory Rate - - Oxygen Saturation 98% 11/18/2024 2:04 PM EDT Inhaled Oxygen Concentration - - Weight 100.9 kg (222 lb 6.4 oz) 11/18/2024 2:04 PM EDT Height 182.9 cm (6') 11/18/2024 2:04 PM EDT Body Mass Index 30.16 11/18/2024 2:04 PM EDT documented in this encounter Progress Notes * Cindi Dickson DO - 11/18/2024 2:15 PM EDT Cardiology Office Note Last Office Visit: 11/18/2024 as a new patient HPI Randolph De Paz who is a 64 y.o. male is here as a new patient for ER follow-up. He was in the emergency department on 10/26/2024 for chest pain. He has been having symptoms for couple of weeks. Troponins were negative. His lab work was unremarkable. He was unremarkable. He was discharged. 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 He admits toworking too much and not getting enough rest. He tells me that he does not get enough sleep. He hasbeen having a lot of fatigue. He tells me that he was just mowing grass at home and started having discomfort in the left upper chest. The discomfort was intermittent. Did not radiate anywhere. No associated symptoms of nausea vomiting diaphoresis. As stated above all workup in the ER was negative. He tells me that he continues to have random episodes of the same discomfort on and off. Not exertional. He has a history of Feliz's esophagus. He does not smoke or drink. He denies any edema. No orthopnea. No palpitation heart racing. He has had no dizziness near syncope or syncopal events. Past Medical Hx, social Hx and family history reviewed Social History Socioeconomic History Marital status: Spouse name: Not on file Number of children: Not on file Years of education: Not on file Highest education level: Not on file Occupational History Not on file Tobacco Use Smoking status: Former Smokeless tobacco: Never Vaping Use Vaping status: Never Used Substance and Sexual Activity Alcohol use: No Drug use: No Sexual activity: Not on file Other Topics Concern Not on file Social History Narrative Not on file Social Drivers of Health Financial Resource Strain: Not on file Food Insecurity: Not on file Transportation Needs: Not on file Physical Activity: Not on file Stress: Not on file (04/05/2024) Social Connections: Not on file Intimate Partner Violence: Low Risk (09/13/2020) Received from [facility] Intimate Partner Violence Insults You: Not on file Threatens You: Not on file Screams at You: Not on file Physically Hurt: Not on file Intimate Partner Violence Score: Not on file Housing Stability: Not on file Family History Problem Relation Age of Onset Cancer Mother Colon Cancer Mother Esophageal Cancer Other Review of Systems: Constitutional: there has been no unanticipated weight loss. Eyes: No visual changes or diplopia. No scleral icterus. ENT: No Headaches, hearing loss or vertigo. No mouth sores or sore throat. Cardiovascular: + chest pain, dyspnea on exertion, irregular heartbeat, leg swelling, orthopnea, palpitations, paroxysmal nocturnal dyspnia and syncope. Pulmonary: no cough or sputum production. Gastrointestinal: No abdominal pain, appetite loss, blood in stools. No change in bowel or bladder habits. Genitourinary: No dysuria, trouble voiding, or hematuria. Musculoskeletal: No gait disturbance, weakness or joint complaints. Integumentary: No rash or pruritis. Endocrine: No malaise, fatigue or temperature intolerance. Hematologic/Lymphatic: No abnormal bruising or bleeding, blood clots or swollen lymph nodes. Allergic/Immunologic: No nasal congestion or hives. Current Outpatient Medications on File Prior to Visit Medication Sig Dispense Refill finasteride (PROPECIA) 1 [...] Capsules by mouth daily. 180 Capsule 3 No current facility-administered medications on file prior to visit. Cardiac Testing: No results found for this visit on 11/18/24. Vitals: 11/18/24 1404 BP: 122/100 Pulse: 63 SpO2: 98% Weight: 222 lb 6.4 oz (100.9 kg) Height: 6' (1.829 m) Lab Results Component Value Date WBC 4.8 10/26/2024 HGB 16.0 10/26/2024 HCT 46.5 10/26/2024 MCV 91.5 10/26/2024 PLT 151 (L) 10/26/2024 Lab Results Component Value Date ALT 19 10/26/2024 AST 19 10/26/2024 ALKPHOS 56 10/26/2024 Lab Results Component Value Date TSH 2.320 06/29/2009 No results found for: CKTOTAL Lab Results Component Value Date CREATININE 1.05 10/26/2024 BUN 18 10/26/2024 NA 137 10/26/2024 K 4.1 10/26/2024 CL 102 10/26/2024 CO2 25 10/26/2024 Lab Results Component Value Date CHOLESTEROL 216 (H) 06/29/2009 Lab Results Component Value Date HDL 52 06/29/2009 Lab Results Component Value Date LDLCALC 137 06/29/2009 Lab Results Component Value Date TRIG 135 06/29/2009 No results found for: CHOLHDL Patient's medications, allergies, past medical, surgical, social and family histories were reviewedand updated as appropriate. Patient Active Problem List Diagnosis Colon cancer screening Adenomatous polyp of colon Feliz's esophagus without dysplasia Physical exam Alert and Oriented. NAD Head: NC/AT Neck: Soft and supple. No JVD, No carotid Bruits. Eyes: MAURICIO BL, No scleral icterus. EOM intact. CV: RRR no murmurs No Gallops. NL S1 and S2, Resp: CTA BL. No rhonchi, wheezing or crackles GI: Abd S/NT/ND. MSK: No chest tenderness Neuro: No apparent neurological defecits. Ext: Radial pulses are +2 and symmetrical. No upper or lower extremity edema/clubbing or cyanosis. Skin: Warm and dry. No visible rashes Psyche: Normal mood. Imp: ER follow-up for chest pain on 10/26/2024. Our ER workup negative. He was discharged. Continues to have mild ongoing symptoms Essential hypertension On lisinopril/hydrochlorothiazide Systolic blood pressure is elevated. Dyslipidemia On 10 mg dose of rosuvastatin Followed by primary care. GERD with Feliz's esophagus On PPI Followed by GI Plan: An ongoing symptoms and risk factors, he will require further cardiac testing. I will order coronary CTA to rule out obstructive CAD. I also encouraged him to give himself more time to rest. I will not make any changes or additions to his medications. I will see him again in about 3 to 4 months or earlier if needed. I asked him to call us with any issues or concerns prior to next visit. [facility] documented in this encounter Plan of Treatment Upcoming Encounters Date Type Department Care Team (Late st Contact Info) Description 05/05/2025 1:45 PM EST Office Visit [facility] [address] [address] Cindi Dickson DO [address] [place] [phone] documented as of this encounter Results * CT ANGIOGRAM CORONARY W CONTRAST (12/01/2024 8:26 AM EDT) Anatomical Region Laterality Modality Chest Computed Tomogra phy 12/01/2024 8:26 AM EDT Impressions 12/01/2024 8:38 AM EDT Vessel-specific details above. CAD-RADS CLASSIFICATION: CAD RADS 1. 1-24% maximal coronary stenosis. Consistent with minimal nonobstructive coronary artery disease. CAD-RADS MODIFIERS: No relevant modifier. CAD-RADS (Coronary Artery Disease-Reporting and Data System) is endorsed by the [place] [employer]. CAD-RADS grading is applied to vessels 1.5mm diameter and greater only. Link to source document. [email or web address]://[email or web address]/[email or web address]/resource/resmgr/cad-rads/scct_jcct_cad-rads.pdf - Note: Radiology results need to be interpreted within a comprehensive clinical context. If you have questions about the radiology report, please contact the office of the ordering clinician. Narrative 12/01/2024 8:[address] CORONARY ANGIOGRAM, 12/01/2024 8:26 AM CLINICAL HISTORY: R07.9-Chest pain, lpikymgqweh-TQR-37-CM B79-Ihmxfzvpw (primary) uxgcuvxjiokz-OLD-50-CM E78.5-Hyperlipidemia, sbvetjfyyrp-JVN-74-CM K21.62-Uzoxuk-uumxtizods reflux disease with esophagitis, without dnzvosme-ABS-33-CM K22.70-Feliz's esophagus without kchewkmiv-FBE-14-CM. COMPARISON: None. PROCEDURE COMMENTS: Heart rate control using Metoprolol as documented in EPIC. Sublingual NTG given if not contraindicated as recorded in EPIC. Isovue 370 IV contrast given as recorded in EPIC. CCTA prospective ECG-gated technique for coronary artery visualization. Interactive 3-D postprocessing done by the reviewing physician on a [employer] workstation, with one or more of the following: Maximum intensity projections (MIPS), Shaded surface rendering, and/or Volume rendering. Ty images archived to PACS. Dose 1 : CT DLP Total : 516.52 mGycm Maximum CTDI Vol : 37.53 mGy FINDINGS: TECHNICAL QUALITY: Acceptable with moderate artifacts slightly limiting vessel assessments. CORONARY ORIGINS: Normal position. PDA arises from the RIGHT coronary circulation. LEFT MAIN: Bifurcates into LAD and Circumflex branches. Normal. No vessel narrowing. LAD (+ ramus intermedius if present): Minimal narrowing, up to 24% due to minimal calcified plaque proximal and mid LAD. CIRCUMFLEX: Normal. No vessel narrowing. RCA: Minimal narrowing, up to 24% with minimal focal plaque distal RCA. CARDIAC VALVES: No significant thickening or calcifications of the aortic or mitral valves. ATRIAL APPENDAGE: No thrombus. PERICARDIUM: Normal thickness. No effusion. EXTRACARDIAC: Visible lung parenchyma without mass or consolidation. Small sliding hiatus hernia noted. No mediastinal mass lesion. Normal sized lymph nodes noted. Procedure Note Pramod Hou MD - 12/01/2024 CT CORONARY ANGIOGRAM, 12/01/2024 8:26 AM CLINICAL HISTORY: R07.9-Chest pain, omzawvuxwqx-RLN-61-CM M87-Tqraupgxm (primary) jqcexfihrkxm-OSI-44-CM E78.5-Hyperlipidemia, ognglhzndui-MJC-17-CM K21.72-Yyctil-ejirnpraid reflux disease with esophagitis, without nmsavjge-BPL-63-CM K22.70-Feliz's esophagus without pnvemixyf-TNM-79-CM. COMPARISON: None. PROCEDURE COMMENTS: Heart rate control using Metoprolol as documented inEPIC. Sublingual NTG given if not contraindicated as recorded in EPIC. [id number] IV contrast given as recorded in EPIC. CCTA prospective ECG-gated techniquefor coronary artery visualization. Interactive 3-D postprocessing done bythe reviewing physician on a [employer] workstation, with one or more of thefollowing: Maximum intensity projections (MIPS), Shaded surface rendering, and/orVolume rendering. Ty images archived to PACS. Dose 1 : CT DLP Total : 516.52 mGycm Maximum CTDI Vol : 37.53 mGy FINDINGS: TECHNICAL QUALITY: Acceptable with moderate artifacts slightly limitingvessel assessments. CORONARY ORIGINS: Normal position. PDA arises from the RIGHT coronary circulation. LEFT MAIN: Bifurcates into LAD and Circumflex branches. Normal. Novessel narrowing. LAD (+ ramus intermedius if present): Minimal narrowing, up to 24% dueto minimal calcified plaque proximal and mid LAD. CIRCUMFLEX: Normal. No vessel narrowing. RCA: Minimal narrowing, up to 24% with minimal focal plaque distal RCA. CARDIAC VALVES: No significant thickening or calcifications of the aorticor mitral valves. ATRIAL APPENDAGE: No thrombus. PERICARDIUM: Normal thickness. No effusion. EXTRACARDIAC: Visible lung parenchyma without mass or consolidation.Small sliding hiatus hernia noted. No mediastinal mass lesion. Normal sizedlymph nodes noted. IMPRESSION: Vessel-specific details above. CAD-RADS CLASSIFICATION: CAD RADS 1. 1-24% maximal coronary stenosis.Consistent with minimal nonobstructive coronary artery disease. CAD-RADS MODIFIERS: No relevant modifier. CAD-RADS (Coronary Artery Disease-Reporting and Data System) is endorsedby the [place] [employer]. CAD-RADS grading is applied to vessels1.5mm diameter and greater only. Link to source document. https://cdn.LetsWombat.com/scct.org/resource/resmgr/cad-rads/scct_jcct_cad-rads.pdf - Note: Radiology results need to be interpreted within a comprehensiveclinical context. If you have questions about the radiology report, please contactthe office of the ordering clinician. Cindi Dickson DO [facility] ORDER[place]LES Final Result documented in this encounter Visit Diagnoses Diagnosis Chest pain, unspecified type- Primary Essential hypertension Unspecified essential hypertension Dyslipidemia Other and unspecified hyperlipidemia Gastroesophageal reflux disease with esophagitis without hemorrhage Feliz's esophagus without dysplasia Feliz's esophagus Chest pain, unspecified type Essential hypertension Unspecified essential hypertension Dyslipidemia Other and unspecified hyperlipidemia Gastroesophageal reflux disease with esophagitis without hemorrhage Feliz's esophagus without dysplasia Feliz's esophagus documented in this encounter Care Teams Foreign Service Officer Relationship Specialty Start Date End Date Pramod Dawson MD [address] [place] [id number] PCP - General 12/14/10 documented as of this encounter
--- OUTSIDE RECORDS SUMMARY | 2024-12-01 07:27 | XMS_ITS | Encounter Summary ---
Author Organization [place] [address] Care Team Providers Care Service Center Technician Name Role Phone Pramod Dawson MD Primary Care Provider [phone] Reason for Referral * MRI/CAT Scan (Routine) - PCP Precert Acquired Specialty Diagnoses / Procedures Referred By Contac t Referred To Contact Radiology Diagnoses Chest pain, unspecified type Essential hypertension Dyslipidemia Gastroesophageal reflux disease with esophagitis without hemorrhage Feliz's esophagus without dysplasia Procedures CT ANGIOGRAM CORONARY W CONTRAST Cindi Dickson DO [address] [place] [address] Phone: tel: fax: Referral ID Status Reason Start Date Expiration Date V isits Requested Visits Authorized [id number] PCP Precert Acquired 11/18/2024 11/18/2025 1 1 Reason for Visit * MRI/CAT Scan (Routine) - PCP Precert Acquired Specialty Diagnoses / Procedures Referred By Contac t Referred To Contact Radiology Diagnoses Chest pain, unspecified type Essential hypertension Dyslipidemia Gastroesophageal reflux disease with esophagitis without hemorrhage Feliz's esophagus without dysplasia Procedures CT ANGIOGRAM CORONARY W CONTRAST Cindi Dickson DO [address] [place] [address] Phone: tel: fax: Referral ID Status Reason Start Date Expiration Date V isits Requested Visits Authorized [id number] PCP Precert Acquired 11/18/2024 11/18/2025 1 1 Encounter Details Date Type Department Care Team (Latest Contact Info) Description 12/01/2024 7:27 AM EDT - 12/01/2024 11:59 PM EDT Hospital Encounter [facility] [address] [place] [address] Cindi Dickson DO [address] [place] [address] Chest pain, unspecified type; Essential hypertension; Dyslipidemia; Gastroesophageal reflux disease with esophagitis without hemorrhage; Feliz's esophagus without dysplasia Discharge Disposition: Home or Self Care Social [...] Sign Reading Time Taken Comments Blood Pressure 122/87 12/01/2024 8:28 AM EDT Pulse 67 12/01/2024 8:28 AM EDT Temperature - - Respiratory Rate 17 12/01/2024 8:00 AM EDT Oxygen Saturation 98% 12/01/2024 8:28 AM EDT Inhaled Oxygen Concentration - - Weight - - Height - - Body Mass Index - - documented in this encounter Medications at Time [...] Discharge Disposition Disposition Code Departure Means Destination Home or Self Care documented in this encounter Plan of Treatment Upcoming Encounters Date Type Department Care Team (Late st Contact Info) Description 05/05/2025 1:45 PM EST Office Visit [facility] [address] [address] Cindi Dickson, DO [facility] [place] [address] documented as of this encounter Procedures Procedure Name Priority Date/Time Associated Diagnosis Comments CT ANGIOGRAM CORONARY W CONTRAST Routine 12/01/2024 8:26 AM EDT Chest pain, unspecified type Essential hypertension Dyslipidemia Gastroesophageal reflux disease with esophagitis without hemorrhage Feliz's esophagus without dysplasia CREATININE ISTAT Routine 12/01/2024 8:09 AM EDT documented in this encounter Results * CT ANGIOGRAM CORONARY [...] and Data System) is endorsed by the [place] [employer]. CAD-RADS grading is applied to vessels 1.5mm diameter and greater only. Link to source document. https://cdn.Comply Serve.com/scct.org/resource/resmgr/cad-rads/[facility]_jcct_cad-rads.pdf - Note: Radiology results need to be interpreted within a comprehensive clinical context. If you have questions about the radiology report, please contact the office of the ordering clinician. Narrative 12/01/2024 8:[address] CORONARY ANGIOGRAM, 12/01/2024 8:26 AM CLINICAL HISTORY: R07.9-Chest pain, xaywdqkegwa-USN-55-CM D87-Vcddiiamv (primary) ilifpjffkqwv-PNB-84-CM E78.5-Hyperlipidemia, ghfjyncfmnb-BYP-27-CM K21.35-Goiebt-cgtpazmqca reflux disease with esophagitis, without vzjcoick-QVT-21-CM K22.70-Feliz's esophagus without krypnaeeg-LBJ-60-CM. COMPARISON: None. PROCEDURE COMMENTS: Heart rate control using Metoprolol as documented in EPIC. Sublingual NTG given if not contraindicated as recorded in EPIC. Isovue 370 IV contrast given as recorded in EPIC. CCTA prospective ECG-gated technique for coronary artery visualization. Interactive 3-D postprocessing done by the reviewing physician on a [employer] workstation, with one or more of the [...] 12/01/2024 8:26 AM CLINICAL HISTORY: R07.9-Chest pain, qpttyrhmlxy-SMG-70-CM A95-Bzxbllhtg (primary) nxwsbhoszvgm-QIL-26-CM E78.5-Hyperlipidemia, wbuidodntfq-NJW-60-CM K21.14-Ezkgwo-xfikkbupbm reflux disease with esophagitis, without gvsrvbhk-LYE-21-CM K22.70-Feliz's esophagus without vijphiyjx-DZJ-78-CM. COMPARISON: None. PROCEDURE COMMENTS: Heart rate control using Metoprolol as documented inEPIC. Sublingual NTG given if not contraindicated as recorded in EPIC. Lxkhti500 IV contrast given as recorded in EPIC. CCTA prospective ECG-gated techniquefor coronary artery visualization. Interactive 3-D postprocessing done bythe reviewing physician on a [employer] workstation, with one or more of thefollowing: [...] Disease-Reporting and Data System) is endorsedby the [place] [employer]. CAD-RADS grading is applied to vessels1.5mm diameter and greater only. Link to source document. https://cdn.Com[employer] Serve.com/scct.org/resource/resmgr/cad-rads/scct_jcct_cad-rads.pdf - Note: Radiology results need to be interpreted within a comprehensiveclinical context. If you have questions about the radiology report, please contactthe office of the ordering clinician. us Cindi Yessi DO IMG CT ORDERABLES Final Result * CREATININE ISTAT (12/01/2024 8:09 AM EDT) Creatinine-iST AT 1.2 0.6 - 1.3 mg/dL 12/01/2024 3:14 PM EDT [facility] Blood BLOOD SPECIMEN / Unknown 12/01/2024 8:09 AM EDT 12/01/2024 3:14 PM EDT us Cindi Dickson DO POINT OF CARE TEST ORDERABLES Fi nal Result [facility] [address] [place] [address] documented in this encounter Visit Diagnoses Diagnosis Chest pain, unspecified type Essential hypertension Unspecified essential hypertension Dyslipidemia Other and unspecified hyperlipidemia Gastroesophageal reflux disease with esophagitis without hemorrhage Feliz's esophagus without dysplasia Feliz's esophagus documented in this encounter Administered Medications Inactive Administered Medications - up to 1 most recent administrations Medication Order MAR Action Action Date Dose Rate Site iopamidoL (ISOVUE-370) 370 mg iodine /mL (76 %) injection (LOW) 75 mL 75 mL, Intravenous, ONCE PRN, 1 dose, Starting on Fri12/01/24 at 0818, Until Fri12/01/24 at 0821, Radiography/Imaging, Radiology Procedure, VESICANT , CT (Contrasts) Given 12/01/2024 8:21 AM EDT 75 mL nitroGLYCERIN (NITROSTAT) SL tablet 0.4-0.8 mg 0.4-0.8 mg, Sublingual, ONCE PRN, 1 dose, Starting on Fri12/01/24 at 0815, Until Fri12/01/24 at 0815, Chest pain, Give [address] exam nitroGLYCERIN (NITROSTAT) 0.4 mg if systolic B/P is 100-109. If systolic B/P > 110 nitroGLYCERIN (NITROSTAT) 0.8 mg. Contraindicated if using any nitroglycerin or Erectile Dysfunction medications. Administer for angina/chest pain prior to administration of analgesics for angina., Intra-procedure(IR) Given 12/01/2024 8:15 AM EDT 0.8 mg sodium chloride 0.9% syringe 100 mL 100 mL, Intravenous, ONCE PRN, 1 dose, Starting on Fri12/01/24 at 0818, Until Fri12/01/24 at 0821, Line Care, Use for drug dilution, Flush peripheral lines every 12 hours, central lines every 8 hours, and after IV medication, CT (Contrasts) Given 12/01/2024 8:21 AM EDT 100 mL sodium chloride 0.9% syringe Intravenous, ONCE PRN, 1 dose, Starting on Fri12/01/24 at 0818, Until Fri12/01/24 at 0821, Line Care, Flush peripheral lines every 12 hours, central lines every 8 hours, and after IV medication, CT (Contrasts) Given 12/01/2024 8:21 AM EDT 10 mL documented in this encounter Orders Medications Ordered That Aristides ht Not Have Been Administered Count Last Ordered Date First Ordered Date diazePAM (VALIUM) tablet 5 mg 1 12/01/2024 metoprolol (LOPRESSOR) injection 5 mg 1 07/2024 metoprolol (LOPRESSOR) tablet 100 mg 1 07/2024 metoprolol (LOPRESSOR) tablet 50 mg 1 12/01 documented in this encounter Care Teams Service Center Technician Relationship Specialty Start Date End Date Pramod Dawson MD [address] [place] [address] [place] [address] PCP - General 12/14/10 documented as of this encounter
--- OUTSIDE RECORDS SUMMARY | 2024-12-20 09:20 | XMS_ITS | Encounter Summary ---
Author Organization [place] [address] Care Team Providers Care Eyeglass Frames Inspector Name Role Phone Pramod Dawson MD Primary Care Provider [phone] Reason for Visit * Reason Comments Follow-up pt is here for his f /u, pt states he is unsure what is to be discussed today, pt states things have been good since last seen Encounter Details Date Type Department Care Team (Late st Contact Info) Description 12/20/2024 9:20 AM EDT Office Visit [facility] [place] [address] [place] [address] [place] [phone] Dewey Streeter MD [address] [facility] [address] [place] [address] Feeling of incomplete bladder emptying (Primary Dx); Benign prostatic hyperplasia with urinary frequency Social History Tobacco Use Types Packs/Day Years Used Date Smoking Tobacco: Former Smokeless Tobacco: Never Alcohol Use Standard Drinks/Week Comments No 0 (1 standard drink = 0.6 oz pur e alcohol) Sexually Active Control Partners Comments Not Currently Female Sex and Gender Information Value Date Recorded Sex Assigned at Not on file Legal Sex Male 5:16 PM EDT Gender Identity Not on file Sexual Orientation Not on file documented as of this encounter Last Filed Vital Signs Vital Sign Reading Time Taken Comments Blood Pressure 130/92 12/20/2024 9:19 AM EDT Pulse 70 12/20/2024 9:19 AM EDT Temperature 36.5 C (97.7 F) 12/20/2024 9:19 AM EDT Respiratory Rate - - Oxygen Saturation 94% 12/20/2024 9:19 AM EDT Inhaled Oxygen Concentration - - Weight 101 kg (222 lb 9.6 oz) 12/20/2024 9:19 AM EDT Height 182.9 cm (6') 12/20/2024 9:19 AM EDT Body Mass Index 30.19 12/20/2024 9:19 AM EDT documented in this encounter Ordered Prescriptions Prescription Sig Dispense Quantity Refills Last Filled Start Date End Date tamsulosin (FLOMAX) 0.4 mg Oral CapsuleIndications :Benign prostatic hyperplasia with urinary frequency Take 2 Capsules by mouth daily. 180 Capsule 3 12/20/2024 documented in this encounter Progress Notes * Dewey Streeter MD - 12/20/2024 9:20 AM EDT Images from the original note were not included. [facility] Urology Established Male E&M Randolph De Paz 1960 Assessment/Orders: Randolph was seen today for follow-up. Diagnoses and all orders for this visit: Feeling of incomplete bladder emptying - POCT BLADDER SCAN Benign prostatic hyperplasia with urinary frequency - tamsulosin (FLOMAX) 0.4 mg Oral Capsule; Take 2 Capsules by mouth daily. Other orders - SEP URINALYSIS POC PLAN: 1. Benign prostatic hyperplasia with urinary frequency Symptoms well controlled with meds Continue flomax Can try going off finasteride and resume if symptoms regress - tamsulosin (FLOMAX) 0.4 mg Oral Capsule; Take 2 Capsules by mouth daily. Dispense: 180 Capsule; Refill: 3 2. Feeling of incomplete bladder emptying (Primary) Pvr ok - POCT BLADDER SCAN Return: No follow-ups on file. Approximately 15 minutes spent with the patient with more than half of it in counseling and coordination of care. Questions were answered to the patient's satisfaction. Chief Complaint(s): Chief Complaint Patient presents with Follow-up pt is here for his f/u, pt states he is unsure what is to be discussed today, pt states things havebeen good since last seen HPI: 64 y.o. male is being seen in follow-up for above. Please refer to earlier note(s) for details. Interval history: symptoms much better with 0.8 mg flomax No specialty comments available. Results for orders placed or performed in visit on 12/20/24 SE[facility] URINALYSIS POC Result Value Ref Range UA Color POC Yellow Color UA Appear POC Clear Clear UA Gluc POC Negative Negative mg/dL UA Bili POC Negative Negative UA Ketones POC Negative Negative mg/dL UA SG POC 1.015 1.001 - 1.035 no units UA Blood POC Negative Negative UA pH POC 6.0 5.0 - 8.0 pH UA Protein POC Negative Negative mg/dL UA Urobilinogen POC 0.2 0.2, 1.0 UA Nitrite POC Negative Negative UA Leuk Est POC Negative Negative POCT BLADDER SCAN Result Value Ref Range Urine Volume 22 mL Past Medical History: Reviewed and no significant change from last visit Current Outpatient Medications Medication Sig Dispense Refill finasteride (PROPECIA) 1 mg Oral Tablet Take 1 mg by mouth daily. finasteride (PROSCAR) 5 mg Oral Tablet LISINOPRIL-HYDROCHLOROTHIAZIDE ORAL Take by mouth. omeprazole (PRILOSEC) 40 mg Oral Capsule, Delayed Release(E.C.) Take 1 Cap by mouth daily. 30 Cap 11 rosuvastatin (CRESTOR) 10 mg Oral Tablet Take 10 mg by mouth daily. tamsulosin (FLOMAX) 0.4 mg Oral Capsule Take 2 Capsules by mouth daily. 180 Capsule 3 No current facility-administered medications for this visit. Allergies Allergen Reactions Penicillins Hives ROS All other systems reviewed and negative except as stated in HPI PHYSICAL EXAM: Constitutional: Vitals Signs: BP 130/92 (BP Location: Left arm, Patient Position: Sitting) Pulse 70 Temp 97.7 ??F (36.5 ??C) (Temporal) Ht 6' (1.829 m) Wt 222 lb 9.6 oz (101 kg) SpO2 94% BMI 30.19 kg/m?? Appearance: No acute distress, comfortable at rest Respiratory: Clear to air entry bilaterally Cardiac: Regular rate and rhythm, heart sounds normal Data: Results for orders placed or performed in visit on 12/20/24 SEP URINALYSIS POC Result Value Ref Range UA Color POC Yellow Color UA Appear POC Clear Clear UA Gluc POC Negative Negative mg/dL UA Bili POC Negative Negative UA Ketones POC Negative Negative mg/dL UA SG POC 1.015 1.001 - 1.035 no units UA Blood POC Negative Negative UA pH POC 6.0 5.0 - 8.0 pH UA Protein POC Negative Negative mg/dL UA Urobilinogen POC 0.2 0.2, 1.0 UA Nitrite POC Negative Negative UA Leuk Est POC Negative Negative POCT BLADDER SCAN Result Value Ref Range Urine Volume 22 mL Labs: Lab results were reviewed in [facility] and pertinent positives are: Lab Results Component Value Date PSA 0.94 05/10/2024 Lab Results Component Value Date CREATININE 1.2 12/01/2024 BUN 18 10/26/2024 NA 137 10/26/2024 K 4.1 10/26/2024 CL 102 10/26/2024 CO2 25 10/26/2024 GFRAFRAM 99 12/10/2020 GFRNONAFRAM 86 12/10/2020 Imaging: Imaging studies (both written report and images on file) were reviewed in [facility] and pertinent positives are: No results found for this or any previous visit. No results found for this or any previous visit. No results found for this or any previous visit. No results found for this or any previous visit. No results found for this or any previous visit. Existing Medical Record: Progress Notes, Consults and miscellaneous records were reviewed in [facility] and pertinent positives are: see synopsis Outside paper records reviewed if applicable Dewey Streeter MD, PhD [facility] 12/20/2024 10:43 AM documented in this encounter Plan of Treatment Upcoming Encounters Date Type Department Care Team (Late st Contact Info) Description 05/05/2025 1:45 PM EST Office Visit [facility] [address] [address] Cindi Dickson, DO [address] [place] [address] documented as of this encounter Procedures Procedure Name Priority Date/Time Associated Diagnosis Comments POCT BLADDER SCAN Routine 12/20/2024 9:3 0 AM EDT Benign prostatic hyperplasia with urinary frequency Feeling of incomplete bladder emptying SEP URINALYSIS POC Routine 12/20/2024 9: 15 AM EDT Benign prostatic hyperplasia with urinary frequency documented in this encounter Results * POCT BLADDER SCAN (12/20/2024 9:30 AM EDT) Urine Volume 22 mL SEP OFFICE 12/20/2024 9:30 AM EDT Dewey Streeter MD POINT OF CARE IMAGING Fin al Result SEP OFFICE * SEP URINALYSIS POC (12/20/2024 9:15 AM EDT) UA Color POC Yellow Color 12/20/2024 9:17 AM EDT [facility] UA Appear POC Clear Clear 12/20/2024 9:17 AM EDT [facility] UA Gluc POC Negative Negative mg/dL 12/20/2024 9:17 AM EDT [facility] UA Bili POC Negative Negative 12/20/2024 9:17 AM EDT [facility] UA Ketones POC Negative Negative mg/dL 12/20/2024 9:17 AM EDT [facility] UA SG POC 1.015 1.001 - 1.035 no units 12/20/2024 9:17 AM EDT [facility] UA Blood POC Negative Negative 12/20/2024 9:17 AM EDT [facility] UA pH POC 6.0 5.0 - 8.0 pH 12/20/2024 9:17 AM EDT [facility] UA Protein POC Negative Negative mg/dL 12/20/2024 9:17 AM EDT [facility] UA Urobilinogen POC 0.2 0.2, 1.0 12/20/2024 9:17 AM EDT [facility] UA Nitrite POC Negative Negative 12/20/2024 9:17 AM EDT [facility] UA Leuk Est POC Negative Negative 9:17 AM EDT [facility] Urine STRUCTURE OF URINARY TRACT PROPER / Unknown 12/20/2024 9:15 AM EDT 12/20/2024 9:17 AM EDT Dewey Streeter MD POINT OF CARE TEST ORDERA BLES Final Result [facility] [address] [place] [address] documented in this encounter Visit Diagnoses Diagnosis Feeling of incomplete bladder emptying- Primary Incomplete bladder emptying Benign prostatic hyperplasia with urinary frequency documented in this encounter Discontinued Medications Medication Sig Discontinue Reason Start Date End Da te tamsulosin (FLOMAX) 0.4 mg Oral CapsuleIndications:Benig n prostatic hyperplasia with urinary frequency Take 2 Capsules by mouth daily. Reorder 06/21/2024 12/20/2024 documented as of this encounter Historical Medications * This list may reflect changes made after this encounter. Medication Sig Dispense Quantity Refills Last Filled Start D ate End Date finasteride (PROSCAR) 5 mg Oral TabletIndications:Benig n prostatic hyperplasia with urinary frequency 12/16/2024 added in this encounter Care Teams Eyeglass Frames Inspector Relationship Specialty Start Date End Date Pramod Dawson MD [address] [place] [id number] PCP - General 12/14/10 documented as of this encounter
[2024-12-21 15:32] LABS: Albumin Level 4.6 g/dl (3.5-5.0); Chloride 101 mmol/L (98-107)
[2024-12-21 15:33] LABS: Potassium 3.8 mmoL/L (3.5-5.1); Sodium 136 mmol/L (136-145)
[2024-12-21 15:35] LABS: Alanine Aminotransferase 25 U/L (12-78); Albumin/Globulin Ratio 1.5 (1.1-1.8); Alkaline Phosphatase 52 U/L (38-126); Anion Gap 9.8 mEq/L (5-15); Aspartate Amino Transferase 27 U/L (17-59); Bilirubin,Total 0.8 mg/dl (0.2-1.3); Blood Urea Nitrogen 17 mg/dl (9-20); Carbon Dioxide 29 mmol/L (22.0-30.0); Creatinine,Serum 0.80 mg/dl (0.66-1.25); Estimated Glomerular Filt Rate 98 ml/min (>60); GFR (African American) 119 ML/MIN (>60); Globulin 3.0 g/dL (1.3-3.2); Total Protein,Serum 7.6 g/dl (6.3-8.2)
[2024-12-21 15:36] LABS: Calcium 9.7 mg/dl (8.4-10.2); Glucose 105 mg/dl (74-100); HDL Cholesterol 44 mg/dl (40-60); Triglycerides 105 mg/dl (30-150)
[2024-12-21 16:12] LABS: Cholesterol 178 mg/dl (140-200)
[2024-12-21 16:25] LABS: Hepatitis C Ab Qual. W/ RFX NEGATIVE (Negative)
[2024-12-22 05:21] LABS: Hepatitis B Surface Antigen Negative (Negative)
--- OUTSIDE RECORDS SUMMARY | 2024-12-22 12:04 | XMS_ITS | Encounter Summary ---
Author Organization [facility] [place] [address] Care Team Providers Care Glass Washer And Carrier Name Role Phone Pramod Dawson MD Primary Care Provider [phone] Encounter Details Date Type Department Care Team (Latest Contact Info) Description 10/26/2024 Travel Social History Tobacco Use Types Packs/Day Years [...] on file documented as of this encounter Functional Status * Suicide Severity Rating Answer Date of Assessment Author No Risk 10/26/2024 11:35 AM EDT Dang Queen, RN * [place] Suicide Severity Rating Scale (Q shift for [...] life? 0 10/26/2024 11:35 AM EDT Dang Bergman, RN documented as of this encounter Plan of Treatment Upcoming Encounters Date Type Department Care Team (Late Contact Info) Description 05/05/2025 1:45 PM EST Office Visit [facility] [address] [place] [address] Yessi, Kami, DO [address] [place] [address] documented as of this encounter Visit Diagnoses Not on filedocumented in this encounter Care Teams Glass Washer And Carrier Relationship Specialty Start Date End Date Pramod Dawson MD [address] [place] [id number] PCP - General 12/14/10 documented as of this encounter
--- OUTSIDE RECORDS SUMMARY | 2024-12-22 12:04 | XMS_ITS | Encounter Summary ---
Author Organization [facility] [place] [address] Care Team Providers Care Press Puller Name Role Phone Pramod Dawson MD Primary Care Provider + [phone] Reason for Visit * Reason Onset Date Comments Appointment Needed 10/27/2024 Encounter Details Date Type Department Care Team (Late st Contact Info) Description 10/27/2024 Telephone [facility] [place] [phone] Prosper Davis MD [address] [place] [address] Appointment Needed Social History Tobacco Use Types Packs/Day Years [...] on file documented as of this encounter Miscellaneous Notes * Telephone Encounter - Citlaly Mcmahon MA - 10/27/2024 2:55 PM EDT Pt hasn't seen Dr. Davis, he hasn't consulted. Scheduled with next available at pt's preference. * Telephone Encounter - Sadia Alarcon RMA - 10/27/2024 10:19 AM EDT Reason for requesting appointment: Hospital follow up Appointment Notes: Seen in the ER on 10/27/24, told to follow up with Dr. Dvais Appointment location: [facility] [place] Call back number: [phone] documented in this encounter Plan of Treatment Upcoming Encounters Date Type Department Care Team (Late st Contact Info) Description 05/05/2025 1:45 PM EST Office Visit [facility] H&[facility] [address] [place] [address] Cindi Dickson, [address] [place] [address] documented as of this encounter Visit Diagnoses Not on filedocumented in this encounter Care Teams Press Puller Relationship Specialty Start Date End Date Pramod Dawson MD [address] [place] [phone] PCP - General 12/14/10 documented as of this encounter
--- OUTSIDE RECORDS SUMMARY | 2024-12-22 12:04 | XMS_ITS | Patient Health Record ---
Author Organization [facility] Address [address] [place] [address] Care Team Providers Care Forest Law And Policy Professor Name Role Phone PesotumPramod duarte Primary Care Provider Unavailabl e Allergies Allergen (clinical drug ingredient) Drug/Non Drug Allergy documented on EMR Reaction Allergy Type Onset Date Status Penicillin hives Drug Allergy Active Reason For Referral No Information Medications Medication SIG (Take, Route, Frequency, Duration) Notes Start Date End Date Status Omeprazole 20 MG 1 cap(s) orally once a day Active Flomax 0.4 MG 1 cap(s) orally once a day Active Tamsulosin HCl 0.4 MG 1 cap(s) orally once a day Active Lisinopril 10 MG 1 tab(s) orally once a day Active Advil 200 MG 3-4 tab(s) orally ev alexandria 6 hours with food 07/20/2018 Not-Taking Crestor 10 MG 1 tab(s) orally once a day for 30 day(s) Active Immunizations Vaccine Route Administration Date Status Comme nts z7 Fluzone Quad .5mL PFS 3 yrs (0.5mL Admin)NONMEDICARE IM Intramuscular 04/13/2017 Administered z2018 FluBLOK Quad 0.5mL PFS (0.5mL Admin) 18 y/o & older IM Intramuscular 04/20/2019 Administered Problems Problem Type SNOMED Code ICD Code Onset Dates Problem Status W/U Status Risk Notes Problem 39266641 Hypertension (401.9) Active confirmed Problem 53790801 Essential hypertension (I10) Active confirmed Problem 326662482 BMI 30.0-30.9,adult (Z68.30) Active confirmed Plan Of Treatment No Information Insurance Providers Payer Name Payer Address Payer Phone Subscriber Number Group Number Insured Name Patient Relationship to Insured Coverage Start Date Coverage End Date [employer] [place] [address] [place] [address] [id number] 1 [id number] ANASTASIYA DIAZ Self - patient is the insured Medications Administered Medication Instructions Date of Administration Dosage Notes iDexamethasone 10mg/mL (10mg Admin) 01/01/2016 0.8 mL retired code-Methylprednisol one Steroid 80mg 01/01/2016 1 mL Medical (General) History Medical History History ICD Code hypertension GERD BPH cholestrol Surgical History Surgery Date(Month/Year) tailbone surgery Hospitalization History Reason Date(Month/Year) chest pain r/t gerd 2008
--- OUTSIDE RECORDS SUMMARY | 2024-12-22 12:04 | XMS_ITS | Clinical Summary ---
Author Organization [facility] Address [address] [place] [id number] Phone [email or web address] Care Team Providers Care Engraver Name Role Phone Unavailable Primary Care Provider Unavailabl e Social History Tobacco Use Types Packs/Day Years Used Date Smoking Tobacco: Never Assessed Intimate Partner Violence Answer Date R ecorded Insults You Not on file 09/13/2020 Threatens You Not on file 09/13/2020 Screams at You Not on file 09/13/2020 Physically Hurt Not on file 09/13/2020 Intimate Partner Violence Score Not on file 09/13/2020 Stress Answer Date Recorded Stress in your Life Not on file 04/05/2024 Dealing with Stress 3 04/05/2024 Sex and Gender Information Value Date Recorded Sex Assigned at Not on file Legal Sex Male 9:51 AM CDT Gender Identity Not on file Sexual Orientation Not on file Plan of Treatment Health Maintenance Due Date Last Done Comments Dental Cleaning/Exam 1960 HIV Screening 1960 Hepatitis C Screening 1962 Annual Preventive Exam 01/31/1980 Hep B Infection Screening - Triple Screen 01/31/1980 Tetanus Diphtheria and Pertu ssis Immunization (1 - Tdap) 1981 Colorectal Cancer Screening 01/31/1992 Zoster Immunization (1 of 2) 01/31/2012 Covid-19 Immunization (1 - 2 024-25 season) 2024 Influenza Immunization (#1) 2025 HIB Immunization Aged Out No longer e ligible based on patient's age to complete this topic HPV Immunization Aged Out No longer e ligible based on patient's age to complete this topic Hepatitis A Immunization Aged Out No longer eligible based on patient's age to complete this topic Hepatitis B Immunization Aged Out No longer eligible based on patient's age to complete this topic Pneumococcal: Ped (0 to 5 Yr s) and At-Risk Member (6 to 64 Yrs) Aged Out No longer e ligible based on patient's age to complete this topic Polio Immunization Aged Out No longer eligible based on patient's age to complete this topic
--- OUTSIDE RECORDS SUMMARY | 2024-12-22 12:04 | XMS_ITS | Encounter Summary ---
Author Organization [place] [address] Care Team Providers Care Slip Cover Estimator Name Role Phone Pramod Dawson MD Primary Care Provider [phone] Encounter Details Date Type Department Care Team (Late st Contact Info) Description 12/01/2024 Results Follow-Up [facility] [address] [address] Cindi Dickson, DO [address] [place] [phone] ANGIOGRAM CORONARY W CONTRAST Social History Tobacco Use Types Packs/Day Years [...] on file documented as of this encounter Plan of Treatment Upcoming Encounters Date Type Department Care Team (Late st Contact Info) Description 05/05/2025 1:45 PM EST Office Visit [facility] [address] [address] Yessi Cindi, DO [address] [place] [phone] documented as of this encounter Visit Diagnoses Not on filedocumented in this encounter Care Teams Slip Cover Estimator Relationship Specialty Start Date End Date Pramod Dawson MD [address] [place] [address] PCP - General 12/14/10 documented as of this encounter
--- OUTSIDE RECORDS SUMMARY | 2024-12-22 12:04 | XMS_ITS | Clinical Summary ---
Author Organization Eveline GUERREROAYLIN OD Address [address] [place] [address] Phone Care Team Providers Care Knockdown Man Name Role Phone Pramod Dawson MD Primary Care Provider [phone] Allergies Active Allergy Reactions Criticality Noted Date Comments Penicillins Hives High 07/19/2013 Medications LISINOPRIL-HYDRO CHLOROTHIAZIDE ORAL Take by mouth. Active finasteride (PROPECIA) 1 mg Oral Tablet Take 1 mg by mouth daily. Active omeprazole (PRILOSEC) 40 mg Oral Capsule, Delayed Release(E.C.) Take 1 Cap by mouth daily. 30 Cap 11 7 Active rosuvastatin (CRESTOR) 10 mg Oral Tablet Take 10 mg by mouth daily. Active finasteride (PROSCAR) 5 mg Oral TabletIndication s:Benign prostatic hyperplasia with urinary frequency 5 Active tamsulosin (FLOMAX) 0.4 mg Oral CapsuleIndicatio ns:Benign prostatic hyperplasia with urinary frequency Take 2 Capsules by mouth daily. 180 Capsule 3 5 Active Active Problems Problem Noted Date Diagnosed Date Galaviz's esophagus without dysplasia 06/18/2022 Overview (06/18/2022): Last EGD 10/2016 showed Galaviz's esophagus with no dysplasia. Assessment & Plan (06/18/2022 11:44 AM EST): Repeat EGD now for surveillance for dysplasia. Continue Omeprazole 40mg once daily. Colon cancer screening 07/19/2013 Adenomatous polyp of colon 07/19/2013 Overview (06/18/2022): Last colonoscopy in 10/2016 showed 3 tubular adenomas. Colonoscopy before that in 07/2013 showed a tubulovillous adenoma. Assessment & Plan (06/18/2022 11:43 AM EST): Repeat colonoscopy for surveillance now. Encounters Date Type Department Care Team Description 12/20/2024 9:20 AM EDT Office Visit [facility] Urology [place] [address] [phone] Dewey Streeter MD Feeling of incomplete bladder emptying (Primary Dx); Benign prostatic hyperplasia with urinary frequency 12/01/2024 7:27 AM EDT - 12/01/2024 11:59 PM EDT Hospital Encounter [facility] [address] [place] [id number] Cindi Dickson DO Chest pain, unspecified type; Essential hypertension; Dyslipidemia; Gastroesophageal reflux disease with esophagitis without hemorrhage; Galaviz's esophagus without dysplasia Discharge Disposition: Home or Self Care 12/01/2024 Results Follow-Up [facility] [address] [address] ANGIOGRAM CORONARY W CONTRAST 12/01/2024 Telephone [facility] H&V [address] [address] Cindi Dickson DO Results 11/18/2024 2:15 PM EDT Office Visit [facility] H&V [address] [address] Cindi Dickson DO Chest pain, unspecified type (Primary Dx); Essential hypertension; Dyslipidemia; Gastroesophageal reflux disease with esophagitis without hemorrhage; Galaviz's esophagus without dysplasia 10/27/2024 Telephone [facility] H&V [place] [address] [place] [phone] Prosper Davis MD Appointment Needed 10/26/2024 11:26 AM EDT - 10/26/2024 3:09 PM EDT Emergency [facility] [place] [address] Don Molina MD Chest pain, unspecified type (Primary Dx) Discharge Disposition: Home or Self Care 10/26/2024 Travel from Last 3 Months Immunizations Immunization Administration Dates Next Due Tdap 03/25/2024 Surgical History Surgery Date Site/Laterality Comments COLONOSCOPY 07/19/2013 N/A COLONOSCOPY; Surgeon: Jordan Beck MD; Location: [facility]; Service: Endoscopy UPPER GASTROINTESTINAL ENDOSCOPY 11/13/2016 N/A ESOPHAGOGASTRODUODENOSCOP Y with biopsy COLONOSCOPY with hot snare polypectomy; Surgeon: Jordan Beck MD; Location: [facility]; Service: Endoscopy COLONOSCOPY 11/13/2016 N/A Surgeon: Jordan Beck MD; Location: [facility]; Service: Endoscopy CYSTOSCOPY In office with Medical History Medical History Date Comments Hypertension Ulcer Heartburn Prostate disorder Urinary tract infection Family History Medical History Relation Name Comments Cancer Mother Colon Cancer Mother Esophageal Cancer Other cousin Relation Name Status Comments Mother Other cousin Social History Tobacco Use Types Packs/Day Years [...] on file Sexual Orientation Not on file Obstetrics History Last Filed Vital Signs Vital Sign Reading Time Taken Comments Blood Pressure 130/92 12/20/2024 9:19 AM EDT Pulse 70 12/20/2024 9:19 AM EDT Temperature 36.5 C (97.7 F) 12/20/2024 9:19 AM EDT Respiratory Rate 17 12/01/2024 8:00 AM EDT Oxygen Saturation 94% 12/20/2024 9:19 AM EDT Inhaled Oxygen Concentration - - Weight 101 kg (222 lb 9.6 oz) 12/20/2024 9:19 AM EDT Height 182.9 cm (6') 12/20/2024 9:19 AM EDT Body Mass Index 30.19 12/20/2024 9:19 AM EDT Plan of Treatment Upcoming Encounters Date Type Department Care Team (Late st Contact Info) Description 05/05/2025 1:45 PM EST Office Visit [facility] [address] [address] Cindi Dickson DO [address] [place] [address] Health Maintenance Due Date Last Done Comments Annual Wellness Exam 1963 Hepatitis C Screening 01/31/1980 Cologuard 2007 FIT 2007 Sigmoidoscopy 2007 Virtual Colonography 2007 Pneumococcal Vaccine 50+ (1 of 1 - PCV) 01/31/2012 Zoster (1 of 2) 01/31/2012 COVID-19 Vaccine (1 - 2023-2 5 season) 2024 Influenza Vaccine (#1) 2025 9, 04/13/2017 Colon Cancer Screening 10/20/2027 Colonoscopy 10/20/2027 10/21/2022, 11/13/2016, 07/19/2013 DTaP/TDaP/Td (2 - Td or Tdap) 03/25/2034 03/25/2024 Hepatitis B Vaccine Aged Out No longe r eligible based on patient's age to complete this topic Meningococcal B Vaccine Aged Out No l onger eligible based on patient's age to complete this topic Procedures Procedure Name Priority Date/Time Associated Diagnosis Comments POCT BLADDER SCAN Routine 12/20/2024 9:3 0 AM EDT Benign prostatic hyperplasia with urinary frequency Feeling of incomplete bladder emptying SEP URINALYSIS POC Routine 12/20/2024 9: 15 AM EDT Benign prostatic hyperplasia with urinary frequency CT ANGIOGRAM CORONARY W CONTRAST Routine 12/01/2024 8:26 AM EDT Chest pain, unspecified type Essential hypertension Dyslipidemia Gastroesophageal reflux disease with esophagitis without hemorrhage Galaviz's esophagus without dysplasia CREATININE ISTAT Routine 12/01/2024 8:09 AM EDT SCANNED EKG 10/27/2024 12:21 PM EDT TROPONIN-T HIGH SENSITIVITY 2HR Timed 10/26/2024 2:15 PM EDT XR CHEST AP PORTABLE STAT 10/26/2024 12:31 PM EDT NT PROBNP STAT 10/26/2024 12:21 PM EDT TROPONIN-T HIGH SENSITIVITY BASELINE W/ REFLEX STAT 10/26/2024 12:21 PM EDT LIPASE LEVEL STAT 10/26/2024 12:21 PM EDT COMPREHENSIVE METABOLIC PANEL STAT 10/26/2024 12:21 PM EDT CBC WITH DIFF STAT 10/26/2024 12:21 PM EDT SALINE LOCK IV STAT 10/26/2024 11:51 AM EDT EK EKG 12 LEAD STAT 10/26/2024 10:59 AM EDT COLONOSCOPY Routine 10/21/2022 1:03 PM EDT Adenomatous polyp of colon, unspecified part of colon from Last 3 Months or Most Recently Relevant to Health Maintenance Results * POCT BLADDER SCAN (12/20/2024 9:30 AM EDT) Urine Volume 22 mL SEP OFFICE 12/20/2024 9:30 AM EDT us Dewey Streeter MD POINT OF CARE IMAGING Fin al Result SEP OFFICE * SEP URINALYSIS POC (12/20/2024 9:15 AM EDT) UA Color POC Yellow Color 12/20/2024 9:17 AM EDT [facility] [place] UA Appear POC Clear Clear 12/20/2024 9:17 AM EDT [facility] [place] UA Gluc POC Negative Negative mg/dL 12/20/2024 9:17 AM EDT [facility] [place] UA Bili POC Negative Negative 12/20/2024 9:17 AM EDT [facility] [place] UA Ketones POC Negative Negative mg/dL 12/20/2024 9:17 AM EDT [facility] [place] UA SG POC 1.015 1.001 - 1.035 no units 12/20/2024 9:17 AM EDT [facility] [place] UA Blood POC Negative Negative 12/20/2024 9:17 AM EDT [facility] [place] UA pH POC 6.0 5.0 - 8.0 pH 12/20/2024 9:17 AM EDT [facility] [place] UA Protein POC Negative Negative mg/dL 12/20/2024 9:17 AM EDT [facility] [place] UA Urobilinogen POC 0.2 0.2, 1.0 12/20/2024 9:17 AM EDT [facility] [place] UA Nitrite POC Negative Negative 12/20/2024 9:17 AM EDT [facility] [place] UA Leuk Est POC Negative Negative 9:17 AM EDT [facility] [place] Urine STRUCTURE OF URINARY TRACT PROPER / Unknown 12/20/2024 9:15 AM EDT 12/20/2024 9:17 AM EDT Dewey Streeter MD POINT OF CARE TEST ORDERA BLES Final Result [facility] [place] [address] [place] [address] * CT ANGIOGRAM CORONARY W CONTRAST (12/01/2024 8:26 AM EDT) Anatomical Region Laterality Modality Chest Computed Tomogra phy 12/01/2024 8:26 AM EDT Impressions 12/01/2024 8:38 AM EDT Vessel-specific details above. CAD-RADS CLASSIFICATION: CAD RADS 1. 1-24% maximal coronary stenosis. Consistent with minimal nonobstructive coronary artery disease. CAD-RADS MODIFIERS: No relevant modifier. CAD-RADS (Coronary Artery Disease-Reporting and Data System) is endorsed by the [place] [employer]. CAD-RADS grading is applied to vessels 1.5mm diameter and greater only. Link to source document. https://cdn.[employer].com/scct.org/resource/resmgr/cad-rads/scct_jcct_cad-rads.pdf - Note: Radiology results need to be interpreted within a comprehensive clinical context. If you have questions about the radiology report, please contact the office of the ordering clinician. Narrative 12/01/2024 8:[address] CORONARY ANGIOGRAM, 12/01/2024 8:26 AM CLINICAL HISTORY: R07.9-Chest pain, seyjlgciwof-WVZ-39-CM O31-Koivgtizx (primary) cymuwloavzgu-KRN-34-CM E78.5-Hyperlipidemia, hsyrdugiovm-GYG-58-CM K21.38-Fiqrgn-swjjxdlocj reflux disease with esophagitis, without sexpklod-CCQ-05-CM K22.70-Galaviz's esophagus without ikzvfeaqw-BAG-21-CM. COMPARISON: None. PROCEDURE COMMENTS: Heart rate control using Metoprolol as documented in EPIC. Sublingual NTG given if not contraindicated as recorded in EPIC. Isovue 370 IV contrast given as recorded in EPIC. CCTA prospective ECG-gated technique for coronary artery visualization. Interactive 3-D postprocessing done by the reviewing physician on a [employer] workstation, with one or more of the [...] 12/01/2024 8:26 AM CLINICAL HISTORY: R07.9-Chest pain, xdualpegsao-DKW-53-CM L49-Uqrznjpgd (primary) qiiksonhcxfz-FNY-76-CM E78.5-Hyperlipidemia, maziqasypqm-XEZ-71-CM K21.36-Fdikjp-dneychofqg reflux disease with esophagitis, without hzsdlzge-VCX-60-CM K22.70-Galaviz's esophagus without fheuykgxc-UIF-07-CM. COMPARISON: None. PROCEDURE COMMENTS: Heart rate control using Metoprolol as documented inEPIC. Sublingual NTG given if not contraindicated as recorded in EPIC. Xclwpi162 IV contrast given as recorded in EPIC. CCTA prospective ECG-gated techniquefor coronary artery visualization. Interactive 3-D postprocessing done bythe reviewing physician on a [employer] workstation, with one or more of thefollowing: [...] Disease-Reporting and Data System) is endorsedby the [place] [employer] of [employer]. CAD-RADS grading is applied to vessels1.5mm diameter and greater only. Link to source document. https://cdn.[employer].com/scct.org/resource/resmgr/cad-rads/scct_jcct_cad-rads.pdf - Note: Radiology results need to be interpreted within a comprehensiveclinical context. If you have questions about the radiology report, please contactthe office of the ordering clinician. [facility] DO IMG CT ORDERABLES Final Result * CREATININE ISTAT (12/01/2024 8:09 AM EDT) Pathologist [facility] Creatinine-iST AT 1.2 0.6 - 1.3 mg/dL 12/01/2024 3:14 PM EDT [facility] Blood BLOOD SPECIMEN / Unknown 12/01/2024 8:09 AM EDT 12/01/2024 3:14 PM EDT [facility] POINT OF CARE TEST ORDERABLES Fi nal Result Performing Organization Address City/State/[facility] Co de Phone Number [facility] [address] [place] [address] * SCANNED EKG (10/27/2024 12:21 PM EDT) Anatomical Region Laterality Modality Other 10/27/2024 12:2 1 PM EDT Unknown Provider IMG ECG ORDERABLES Final Result * TROPONIN-T HIGH SENSITIVITY 2HR (10/26/2024 2:15 PM EDT) [facility] xg-pFrnkszhq-T 2HR 6 <22 ng/L 10/26/2024 2:34 PM EDT [facility] hs-cTnT 2Hr Delta from Baseline -1 <4 ng/L 10/26/2024 2:34 PM EDT [facility] Blood VENOUS BLOOD / Unknown Venipuncture / Unknown 10/26/2024 2:15 PM EDT 10/26/2024 2:16 PM EDT Narrative [facility] - 10/26/2024 2:34 PM EDT Ingestion of jenni doses of biotin (>5 mg/day) taken within 8 hours of drawing blood sample can interfere with this immunoassay test. Vance Lopez APRN CHEMISTRY ORDERABLES Fin al Result [facility] [address] [place], [place] [id number] * XR CHEST AP PORTABLE (10/26/2024 12:31 [...] contactthe office of the ordering clinician. us Vance Lopez APRN IMG DIAGNOSTIC IMAGING O RDERABLES Final Result * TROPONIN-T HIGH SENSITIVITY BASELINE W/ REFLEX (10/26/2024 12:21 PM EDT) Pathologist [facility] rp-wFyjppior-Q 7 <22 ng/L 10/26/2024 12:51 PM EDT [facility] Blood VENOUS BLOOD / Unknown Venipuncture / Unknown 10/26/2024 12:21 PM EDT 10/26/2024 12:28 PM EDT Narrative [facility] - 10/26/2024 12:51 PM EDT Ingestion of jenni doses of biotin (>5 mg/day) taken within 8 hours of drawing blood sample can interfere with this immunoassay test. Vance Lopez APRN CHEMISTRY ORDERABLES [place] [address] * (ABNORMAL) CBC WITH DIFF (10/26/2024 12:21 PM EDT) [facility] WBC 4.8 3.7 - 10.3 x10(3)/mcL 10/26/2024 12:33 PM EDT [facility] RBC 5.08 4.60 - 6.10 x10(6)/mcL 10/26/2024 12:33 PM EDT [facility] Hgb 16.0 13.7 - 17.5 g/dL 10/26/2024 12:33 PM EDT [facility] Hct 46.5 40.0 - 51.0 % 10/26/2024 12:33 PM EDT [facility] MCV 91.5 80.0 - 100.0 fL 10/26/2024 12:33 PM EDT [facility] MCH 31.5 26.0 - 34.0 pg 10/26/2024 12:33 PM EDT [facility] MCHC 34.4 30.7 - 35.5 g/dL 10/26/2024 12:33 PM EDT [facility] RDW 11.8 <=14.9 % 10/26/2024 12:33 PM EDT [facility] Platelet 151(L) 155 - 369 x10(3)/[facility] 10/26/2024 12:33 PM EDT [facility] MPV 11.0 8.8 - 12.5 fL 10/26/2024 12:33 PM EDT [facility] Neut Percent 59.0 % 10/26/2024 12:33 PM EDT [facility] Comment:Neutrophils equals s egs plus bands Imm Gran% 0.0 % 10/26/2024 12:33 PM EDT [facility] Comment:Automated count of m etamyelocytes, myelocytes and promyelocytes. Lymph Percent 28.8 % 10/26/2024 12:33 PM EDT [facility] [place] Percent 10.5 % 10/26/2024 12:33 PM EDT [facility] Eos Percent 1.3 % 10/26/2024 12:33 PM EDT [facility] Baso Percent 0.4 % 10/26/2024 12:33 PM EDT [facility] Neut # 2.8 1.6 - 6.1 x10(3)/[facility] 10/26/2024 12:33 PM EDT [facility] Comment:Neutrophils equals s egs plus bands IMMGRAN# 0.0 0.0 - 0.1 x10(3)/[facility] 10/26/2024 12:33 PM EDT [facility] Comment:Automated count of m etamyelocytes, myelocytes and promyelocytes. An absolute IG <0.1 is reported as 0.0. Lymph # 1.4 1.2 - 3.9 x10(3)/[facility] 10/26/2024 12:33 PM EDT [facility] [place] # 0.5 0.3 - 0.9 x10(3)/[facility] 10/26/2024 12:33 PM EDT [facility] Eos# 0.1 0.0 - 0.5 x10(3)/[facility] 10/26/2024 12:33 PM EDT [facility] Baso # 0.0 0.0 - 0.1 x10(3)/[facility] 10/26/2024 12:33 PM EDT [facility] Blood VENOUS BLOOD / Unknown Venipuncture / Unknown 10/26/2024 12:21 PM EDT 10/26/2024 12:28 PM EDT Vance Lopez APRN HEMATOLOGY ORDERABLES Fi nal Result Performing Organization Address City/[facility]/ZIP Co de Phone Number [address] [address] * NT PROBNP (10/26/2024 12:21 PM EDT) NT Pro-BNP 49 <=229 pg/mL 10/26/2024 12:51 PM EDT [facility] Blood VENOUS BLOOD / Unknown Venipuncture / Unknown 10/26/2024 12:21 PM EDT 10/26/2024 12:28 PM EDT Narrative [facility] - 10/26/2024 12:51 PM EDT [...] ORDERABLES Fin al Result Performing Organization Address [facility] Co de Phone Number [address] [address] * LIPASE LEVEL (10/26/2024 12:21 PM EDT) Lipase Lvl 21 13 - 60 U/L 10/26/2024 12:48 PM EDT [facility] Blood VENOUS BLOOD / Unknown Venipuncture / Unknown 10/26/2024 12:21 PM EDT 10/26/2024 12:28 PM EDT Vance Lopez APRN CHEMISTRY ORDERABLES Fin al Result Performing Organization Address City/[facility]/ZIP Co de Phone Number [facility] [address] [place], [place] [id number] * (ABNORMAL) COMPREHENSIVE METABOLIC PANEL (10/26/2024 12:21 PM EDT) [facility] Signature Sodium 137 136 - 145 mmol/L 10/26/2024 12:48 PM EDT [facility] Potassium 4.1 3.5 - 5.0 mmol/L 10/26/2024 12:48 PM EDT [facility] Chloride 102 98 - 107 mmol/L 10/26/2024 12:48 PM EDT [facility] Total CO2 25 22 - 29 mmol/L 10/26/2024 12:48 PM EDT [facility] Anion Gap 10 7 - 16 mmol/L 10/26/2024 12:48 PM EDT [facility] Calcium 9.4 8.8 - 10.4 mg/dL 10/26/2024 12:48 PM EDT [facility] Glucose Lvl 104(H) 70 - 99 mg/dL 10/26/2024 12:48 PM EDT [facility] BUN 18 8 - 23 mg/dL 10/26/2024 12:48 PM EDT [facility] Creatinine 1.05 0.67 - 1.30 mg/dL 10/26/2024 12:48 PM EDT [facility] Albumin 4.6 3.2 - 4.6 gm/dL 10/26/2024 12:48 PM EDT [facility] Total Protein 7.5 6.4 - 8.3 gm/dL 10/26/2024 12:48 PM EDT [facility] Bili Total 0.7 0.2 - 1.4 mg/dL 10/26/2024 12:48 PM EDT [facility] ALT 19 <=41 U/L 10/26/2024 12:48 PM EDT [facility] AST 19 <=40 U/L 10/26/2024 12:48 PM EDT [facility] Alk Phos 56 40 - 129 U/L 10/26/2024 12:48 PM EDT [facility] eGFR (CKD-EPIcr 2020) 80 >=60 mL/min/1.7 3 m2 10/26/2024 12:48 PM EDT [facility] Comment:Estimated GFR was ca lculated using the CKD-EPIcr (2020) equation refit without race. The equation is recommended by the National Kid[employer] - [place] [employer] Neph[employer] Task Force. Blood VENOUS BLOOD / Unknown Venipuncture / Unknown 10/26/2024 12:21 PM EDT 10/26/2024 12:28 PM EDT us Vance Lopez ELEVATOR REPAIR MECHANIC CHEMISTRY ORDERABLES Fin al Result [facility] [address] [place] [address] * EK EKG 12 LEAD (10/26/2024 10:59 AM EDT) Anatomical Region Laterality Modality Electrocardiogra phy 10/26/2024 11:0 4 AM EDT Impressions 10/26/2024 2:[address] [facility] Test Date: 2024-10-26 Pat Name: ANASTASIYA DIAZ Department: DEPID Room: Gender: Male [place]: Bt : 1960 Requested By: [facility] Order Number: [id number] [place] MD: Cindi Dickson DO Measurements Intervals [place] Rate: 64 P: 22 [place]: 160 QRS: -3 QRSD: 91 T: 2 QT: 379 QTc: 391 Interpretive Statements SINUS RHYTHM MODERATE VOLTAGE CRITERIA FOR LVH, CONSIDER NORMAL VARIANT Electronically Signed On 10-26-2024 14:38:38 EDT by Cindi Dickson DO Narrative Procedure Note Cindi Dickson DO - 10/26/[address] [facility] Test Date: 2024-10-26 Pat Name: ANASTASIYA DIAZ Department: DEPID Room: Gender: Male [place]: Bt : 1960 Requested By: [facility] Order Number: [id number] [place] MD: Cindi Dickson DO Measurements Intervals [place] Rate: 64 P: 22 [place]: 160 QRS: -3 QRSD: 91 T: 2 QT: 379 QTc: 391 Interpretive Statements SINUS RHYTHM MODERATE VOLTAGE CRITERIA FOR LVH, CONSIDER NORMAL VARIANT Electronically Signed On 10-26-2024 14:38:38 EDT by Cindi Dickson DO us Don Molina MD IMG ECG ORDERABLES Final Resul t * COLONOSCOPY (10/21/2022 1:03 PM EDT) Anatomical Region Laterality Modality Endoscopy Narrative 10/21/2022 1:02 PM EDT Table formatting from the original result was not included. Findings The terminal ileum appeared normal. 3 mm sessile polyp in the descending colon; no bleeding was identified; performed complete en bloc removal by cold forceps biopsy 6 mm sessile polyp in the sigmoid colon; no bleeding was identified; completely removed en bloc by cold snare and retrieved specimen Internal small hemorrhoids observed during retroflexion; no bleeding was identified Recommendation Follow up with PCP Await pathology results Repeat colonoscopy in 5 years Indication Adenomatous polyp of colon, unspecified part of colon Staff Staff Role Jamar Lozano RN Supervisor [employer]ast Furnace Rika Ayala MD Performing Provider Kasia Shankar MD Anesthesiologist Medications See Anesthesia Record. Preprocedure A history and physical has been performed, and patient medication allergies have been reviewed. The patient's tolerance of previous anesthesia has been reviewed. The risks and benefits of the procedure and the sedation options and risks were discussed with the patient. All questions were answered and informed consent obtained. ASA 2 - Patient with mild systemic disease Details of the Procedure The patient underwent monitored anesthesia care, which was administered by an anesthesia professional. The patient's blood pressure, heart rate, level of consciousness, oxygen, respirations, ECG and ETCO2 were monitored throughout the procedure. A digital rectal exam was performed. The scope was introduced through the anus and advanced to the cecum. Retroflexion was performed in the rectum. The quality of bowel preparation was evaluated using the [place] Bowel Preparation Scale with scores of: right colon = 3, transverse colon = 3, left colon = 3. The total BBPS score was 9. Bowel prep was adequate. The patient experienced no blood loss. The procedure was not difficult. The patient tolerated the procedure well. There were no apparent adverse events. Patient provided education and educated on specific discharge instructions. Patient educated on medications given during the procedure and new medications for discharge. Patient verbalizes understanding of discharge education. Patient stable and awaiting transport for discharge. Events Procedure Events Event Event Time ENDO SCOPE IN TIME 10/21/2022 12:49 PM ENDO CECUM REACHED 10/21/2022 12:50 PM ENDO SCOPE OUT TIME 10/21/2022 1:00 PM Specimens ID Type Source Tests Collected by Time 1 : Antrum biopsies for gastritis to r/o H. Pyloi Tissue Gastric PATHOLOGY TISSUE REQUEST [place], Bret, flame cutting supervisor 10/21/2022 1234 2 : Irregular Z line at 36 cm for galaviz's to r/o dysplasia Tissue Esophagus PATHOLOGY TISSUE REQUEST Kennedy, Bret, flame cutting supervisor 10/21/2022 1236 3 : Irregular Z line at 38 cm for galaviz's to r/o dysplasia Tissue Esophagus PATHOLOGY TISSUE REQUEST [place], Bret, flame cutting supervisor 10/21/2022 1237 4 : Descending Colon Polypectomy x 1 via forceps Tissue Large Intestine, Left/Descending Colon PATHOLOGY TISSUE REQUEST Kennedy, Bret, flame cutting supervisor 10/21/2022 1253 5 : sigmoid polypectomy via cold snare x 1 Tissue Large Intestine, Sigmoid Colon PATHOLOGY TISSUE REQUEST [place], Bret, flame cutting supervisor 10/21/2022 1259 Rika Ayala MD ENDOSCOPY PROCEDUR E ORDERABLES Final Result from Last 3 Months or Most Recently Relevant to Health Maintenance Insurance [employer] PPO [place] PPO Care Teams Knockdown Man Relationship Specialty Start Date End Date Pramod [place] MD [address] [place] [id number] PCP - General 12/14/10
--- OUTSIDE RECORDS SUMMARY | 2024-12-22 12:04 | XMS_ITS | Encounter Summary ---
Author Organization [place] [place] [address] Care Team Providers Care Clinical Trials Nurse Name Role Phone Pramod Dawson MD Primary Care Provider + [phone] Reason for Visit * Reason Onset Date Comments Results 12/01/2024 Encounter Details Date Type Department Care Team (Late st Contact Info) Description 12/01/2024 Telephone [facility] [address] [place] [address] Yessi, Cindi, DO [address] [place] [id number] Results Social History Tobacco Use Types Packs/Day Years [...] encounter Miscellaneous Notes * Telephone Encounter - Tatyana Kemp MA - 12/01/2024 2:53 PM EDT Called pt went over test results. * Telephone Encounter - Pretty Hinojosa - 12/01/2024 12:46 PM EDT Test result being requested: CT angio Who is requesting result: Phone # to reach requester: [phone] documented in this encounter Plan of Treatment Upcoming Encounters Date Type Department Care Team (Late st Contact Info) Description 05/05/2025 1:45 PM EST Office Visit [facility] [address] [address] Cindi Dickson, DO [address] [place] [address] documented as of this encounter Visit Diagnoses Not on filedocumented in this encounter Care Teams Clinical Trials Nurse Relationship Specialty Start Date End Date Pramod Dawson MD [address] [place] [address] PCP - General 12/14/10 documented as of this encounter
--- OUTSIDE RECORDS SUMMARY | 2024-12-22 12:04 | XMS_ITS | Clinical Summary ---
Author Organization [facility] Address [facility] [place] [address] Care Team Providers Care Ground Crewman Name Role Phone Unavailable Primary Care Provider Unavailabl e Source Comments This information has been disclosed to you from confidential records protectedfrom disclosure by state law. You shall make no further disclosure of thisinformation without the specific, written, and informed release of theindividual to whom it pertains, or as otherwise permitted by law. A generalauthorization for the release of medical or other information is not sufficientfor the purposes of therelease of HIV test results or diagnoses. [id number] Social History Tobacco Use Types Packs/Day Years Used Date Smoking Tobacco: Never Assessed Sex and Gender Information Value Date Recorded Sex Assigned at Not on file Legal Sex Male 11:19 AM EST Gender Identity Not on file Sexual Orientation Not on file Plan of Treatment Not on file
== END 2024-12-21 23:59 | disposition home or self-care (01) ==
LOC: LAB.DROPOF 12-22 12:02
PROVIDERS: PCP Nurse Practitioner; Visit Provider Nurse Practitioner
DX: E78.5 Hyperlipidemia, unspecified (principal); I10 Essential (primary) hypertension; N40.0 Benign prostatic hyperplasia without lower urinary tract symptoms; Z12.5 Encounter for screening for malignant neoplasm of prostate; Z11.59 Encounter for screening for other viral diseases
CPT/HCPCS: 80053; 80061; 80074; 82043; 82570; 87340; 87389